=== PATIENT | male | born 1970 | race Caucasian/White ===

== ENCOUNTER → 2016-07-03 | Outpatient (CLI) | payer OTHER ==
--- NOTE | 2016-07-03 15:16 | XR ---
EXAMINATION TYPE: XR wrist complete LT DATE OF EXAM: 07/03/2016 3:12 PM COMPARISON: NONE HISTORY: Pain TECHNIQUE: 4 views submitted. FINDINGS: The osseous structures are intact. The joint spaces are preserved and there is no acute fracture or dislocation. Tiny bone island involving the distal radius. IMPRESSION: 1. No definite acute fracture or dislocation if symptoms persist, follow-up study in 7 to 10 days wo uld be suggested
== END | disposition home or self-care (01) ==
LOC: RADXRMAIN 15:01
PROVIDERS: ATTEND Psychiatry & Neurology Neurology
DX: M25.532 Pain in left wrist (principal)

== ENCOUNTER → 2016-07-16 | Outpatient (CLI) | payer OTHER ==
--- NOTE | 2016-07-16 15:02 | MR ---
EXAMINATION TYPE: MR lumbar spine wo con DATE OF EXAM: 07/16/2016 8:26 AM COMPARISON: NONE HISTORY: Lumbago CONTRAST: 0 mL intravenous Omniscan. TECHNIQUE: Multiplanar, multisequence images of the lumbar spine were acquired. FINDINGS: Cord terminates at the T12-L1 level. L5-S1: No significant disc bulge or disc herniation. No spinal canal stenosis. No foraminal stenosi s. Disc desiccation is present. L4-L5: Central disc protrusion is present with moderate anterior thecal sac compression. No AP spinal canal stenosis is present. On T2 sagittal weighted images there is increased signal within the infe rior disc space suggesting an annular tear. Neural foramen are patent.. Mild disc desiccation is pres ent. L3-L4: Mild symmetrical disc bulging is anterior thecal sac flattening. No AP spinal canal stenosis i s present. Neural foramen are patent. L2-L3: No significant disc bulge or disc herniation. No spinal canal stenosis. No foraminal stenosi s. Neural foramen are patent.. L1-L2: No significant disc bulge or disc herniation. No spinal canal stenosis. No foraminal stenosi s. . T12-L1: No significant disc bulge or disc herniation. No spinal canal stenosis. No foraminal stenos is. . IMPRESSION: 1. Central disc protrusion with moderate anterior thecal sac compression. No stenosis is present at t he L4-5 level. Annular tear may be present. 2. Minimal disc bulge with anterior thecal sac flattening L3-L4.
== END ==
LOC: RADMRIMAIN 07:48
PROVIDERS: ATTEND Psychiatry & Neurology Neurology
DX: M51.26 Other intervertebral disc displacement, lumbar region (principal); M51.27 Other intervertebral disc displacement, lumbosacral region; G95.29 Other cord compression
CPT/HCPCS: 72148

== ENCOUNTER → 2017-12-17 | Outpatient (CLI) | payer OTHER ==
--- NOTE | 2017-12-19 09:10 | MR ---
EXAMINATION TYPE: MR cspine/tspine wo con DATE OF EXAM: 12/17/2017 COMPARISON: None HISTORY: Neck pain, thoracic pain CONTRAST: Performed utilizing 0 mL intravenous Gadavist gadolinium contrast. TECHNIQUE: Multiplanar multiecho imaging on a 3.0 Adelina magnet is performed through the cervical spin e. Motion artifact causes some limitation of evaluation. FINDINGS: The craniovertebral junction is normal. Vertebral body alignment is normal. Spinal cord maintains normal signal through its visualized course. C7-T1: No focal disc herniation or significant disc bulge is evident. No spinal canal stenosis or n eural foraminal stenosis is present. C6-7: There is a small left paracentral disc herniation. This is likely subligamentous causing mild a nterior thecal sac compression. No spinal canal stenosis is present. Motion artifact limits evaluatio n for cord compression. Obvious cord contact is not identified. The sagittal plane no stenosis is arias dent. C5-6: Mild disc bulge has anterior thecal sac contact. No cord contact is evident. Uncovertebral join t hypertrophy is present with mild foraminal narrowing. C4-5: Mild disc bulge is anterior thecal sac flattening. No AP spinal canal stenosis present. No cord contact is evident. Uncovertebral joint hypertrophy is mild bilateral foraminal narrowing.. C3-4: There is a left paracentral mild disc bulge with mild anterior thecal sac compression. No focal disc herniation is evident. No cord contact is evident. Neural foramen are patent.. C2-3: No focal disc herniation or significant disc bulge is evident. No spinal canal stenosis or giovanny ral foraminal stenosis is present. IMPRESSIONS: 1. Small left paracentral subligamentous disc herniation C6-7 with mild anterior thecal sac compressi on. Motion artifact limits this level evaluation. 2. Additional mild disc bulging present C3-4 through C5-6. 3. Mild foraminal narrowing discussed above secondary to uncovertebral joint hypertrophy. EXAMINATION TYPE: MR cspine/tspine wo con DATE OF EXAM: 12/17/2017 COMPARISON: None HISTORY: Neck pain, thoracic pain CONTRAST: Performed utilizing 0 mL intravenous Gadavist gadolinium contrast. TECHNIQUE: Multiplanar, multiecho imaging on a 3.0 Adelina magnet is performed through the thoracic spi ne. Spinal cord maintains normal signal through its visualized course. Vertebral body alignment is normal. Vertebral body heights are preserved. Some minimal disc bulge at T8-9 may be present with anterior thecal sac flattening. No cord compressi on is evident. No spinal canal stenosis is present. T5-T6 had mild right paracentral disc bulge with anterior thecal sac contact. Some cord flattening ma y be present. Spinal canal stenosis is not present. Cord contact is not identified on this image. Disc hydration levels are preserved. No spinal canal stenosis is evident. IMPRESSIONS: 1. Mild disc bulging present T8-9 and T5-6 with anterior thecal sac contact.
== END | disposition home or self-care (01) ==
LOC: RADMRIMAIN 11:38
PROVIDERS: ATTEND Physician Assistant
DX: M50.223 Other cervical disc displacement at C6-C7 level (principal); M99.71 Connective tissue and disc stenosis of intervertebral foramina of cervical region; M51.24 Other intervertebral disc displacement, thoracic region
CPT/HCPCS: 72141; 72146

== ENCOUNTER 2018-05-22 16:35 | Inpatient (IN) | payer OTHER ==
[2018-05-22] MEDS ORDERED: ACETAMINOPHEN IV (For NPO) 1,000 MG in EMPTY BAG 1 BAG IVPB STA (17:05)
[2018-05-22] MEDS ORDERED: ONDANSETRON 4 MG/2 ML VIAL IVP STA (17:08)
[2018-05-22] MEDS ORDERED: PANTOPRAZOLE 40 MG/10 ML VIAL IVP ONE (17:09)
--- NOTE | 2018-05-22 17:20 | ED ---
General Adult HPI - General Chief complaint: GI Bleed Stated complaint: vomiting blood/diabetic Time Seen by Provider: 05/22/18 16:40 Source: patient, RN notes reviewed Mode of arrival: ambulatory Limitations: no limitations - History of Present Illness Initial comments: Is a 48-year-old male who presents emergency Department stating he's been vomiting since 10:00 this morning. Patient states he started vomiting and it is more recently turned into dark coffee ground emesis which which she states she's had in the past. Patient states he did have some drinks last night but is not an alcoholic. Patient states in the past they were never able to find out why he was vomiting up blood. Patient states he has a lot of nausea and slight diffuse abdominal pain. Patient denies any chest pain difficult breathing shortness of breath. Patient denies being on any blood thinners. Patient denies any history of any cirrhosis. - Related Data Home Medications Medication Instructions Recorded Confirmed Famotidine [Pepcid] 20 mg PO BID 09/11/14 05/22/18 Lisinopril 40 mg PO QAM 09/11/14 05/22/18 Losartan Potassium [Cozaar] 100 mg PO QAM 09/11/14 05/22/18 Sucralfate [Carafate] 1 gm PO QID 09/11/14 05/22/18 Terazosin [Hytrin] 2 mg PO HS 09/11/14 05/22/18 amLODIPine BESYLATE [Norvasc] 5 mg PO QAM 09/11/14 05/22/18 Gabapentin [Neurontin] 400 mg PO TID 05/22/18 05/22/18 Insulin Glargine,Hum.rec.anlog 26 unit SQ HS 05/22/18 05/22/18 [Basaglar Kwikpen U-100] Insulin Glargine,Hum.rec.anlog 30 unit SQ DAILY 05/22/18 05/22/18 [Basaglar Kwikpen U-100] Omeprazole 20 mg PO DAILY 05/22/18 05/22/18 Allergies Allergy/AdvReac Type Severity Reaction Status Date / Time No Known Allergies Allergy Verified 05/22/18 18:00 Review of Systems ROS Statement: Those systems with pertinent positive or pertinent negative responses have been documented in the HPI. ROS Other: All systems not noted in ROS Statement are negative. Past Medical History Past Medical History: Diabetes Mellitus, GERD/Reflux, Hypertension Additional Past Medical History / Comment(s): PT STATES HE FREQUENTLY VOMITS BLOOD, History of Any Multi-Drug Resistant Organisms: None Reported Additional Past Surgical History / Comment(s): colonoscopy Past Anesthesia/Blood Transfusion Reactions: No Reported Reaction Past Psychological History: Anxiety, Depression Smoking Status: Former smoker Past Alcohol Use History: Occasional Past Drug Use History: Marijuana - Past Family History Mother Family Medical History: No Reported History General Exam - General Exam Comments Initial Comments: GENERAL: Patient is well-developed and well-nourished. Patient is nontoxic and well- hydrated and is in mild distress. ENT: Neck is soft and supple. No significant lymphadenopathy is noted. Oropharynx is clear. Moist mucous membranes. EYES: The sclera were anicteric and conjunctiva were pink and moist. Extraocular movements were intact and pupils were equal round and reactive to light. Eyelids were unremarkable. PULMONARY: Unlabored respirations. Good breath sounds bilaterally. No audible rales rhonchi or wheezing was noted. CARDIOVASCULAR: There is a regular rate and rhythm without any murmurs gallops or rubs. ABDOMEN: Soft and nontender with normal bowel sounds. No palpable organomegaly was noted. There is no palpable pulsatile mass. SKIN: Skin is clear with no lesions or rashes and otherwise unremarkable. NEUROLOGIC: Patient is alert and oriented x3. Cranial nerves II through XII are grossly intact. Motor and sensory are also intact. Normal speech, volume and content. Symmetrical smile. MUSCULOSKELETAL: Normal extremities with adequate strength and full range of motion. LYMPHATICS: No significant lymphadenopathy is noted PSYCHIATRIC: Normal psychiatric evaluation. Limitations: no limitations Course Vital Signs 05/22/18 05/22/18 05/22/18 16:38 17:01 18:12 Temperature 98.3 F 100.1 F H Pulse Rate 80 57 L Respiratory 20 16 Rate Blood Pressure 197/92 183/87 O2 Sat by Pulse 100 99 Oximetry 05/22/18 05/22/18 18:53 19:24 Temperature 99.5 F Pulse Rate Respiratory 17 Rate Blood Pressure 162/108 O2 Sat by Pulse Oximetry Medical Decision Making - Medical Decision Making Patient's gastric occult was positive. Patient's hemoglobin was 13. - Lab Data Result diagrams: 05/22/18 17:11 05/22/18 17:11 Lab Results 05/22/18 05/22/18 05/22/18 Range/Units 17:11 17:11 17:11 WBC 11.4 H (3.8-10.6) k/uL RBC 4.52 (4.30-5.90) m/uL Hgb 13.2 (13.0-17.5) gm/dL Hct 39.1 (39.0-53.0) % MCV 86.5 (80.0-100.0) fL MCH 29.2 (25.0-35.0) pg MCHC 33.7 (31.0-37.0) g/dL RDW 13.3 (11.5-15.5) % Plt Count 277 (150-450) k/uL Neutrophils % 88 % Lymphocytes % 8 % Monocytes % 3 % Eosinophils % 1 % Basophils % 0 % Neutrophils # 10.1 H (1.3-7.7) k/uL Lymphocytes # 0.9 L (1.0-4.8) k/uL Monocytes # 0.3 (0-1.0) k/uL Eosinophils # 0.1 (0-0.7) k/uL Basophils # 0.0 (0-0.2) k/uL PT (9.0-12.0) sec INR (<1.2) APTT (22.0-30.0) sec Sodium 144 (137-145) mmol/L Potassium 4.1 (3.5-5.1) mmol/L Chloride 108 H (98-107) mmol/L Carbon Dioxide 22 (22-30) mmol/L Anion Gap 14 mmol/L BUN 22 H (9-20) mg/dL Creatinine 0.85 (0.66-1.25) mg/dL Est GFR (CKD-EPI)AfAm >90 (>60 ml/min/1.73 sqM) Est GFR (CKD-EPI)NonAf >90 (>60 ml/min/1.73 sqM) Glucose 190 H (74-99) mg/dL Plasma Lactic Acid Christopher 1.8 (0.7-2.0) mmol/L Calcium 10.5 H (8.4-10.2) mg/dL Total Bilirubin 0.8 (0.2-1.3) mg/dL AST 35 (17-59) U/L ALT 37 (21-72) U/L Alkaline Phosphatase 64 (38-126) U/L Total Protein 7.6 (6.3-8.2) g/dL Albumin 4.8 (3.5-5.0) g/dL Gastric Occult Blood (Negative) Blood Type Blood Type Recheck Antibody Screen Spec Expiration Date 05/22/18 05/22/18 05/22/18 Range/Units 17:11 17:11 18:05 WBC (3.8-10.6) k/uL RBC (4.30-5.90) m/uL Hgb (13.0-17.5) gm/dL Hct (39.0-53.0) % MCV (80.0-100.0) fL MCH (25.0-35.0) pg MCHC (31.0-37.0) g/dL RDW (11.5-15.5) % Plt Count (150-450) k/uL Neutrophils % % Lymphocytes % % Monocytes % % Eosinophils % % Basophils % % Neutrophils # (1.3-7.7) k/uL Lymphocytes # (1.0-4.8) k/uL Monocytes # (0-1.0) k/uL Eosinophils # (0-0.7) k/uL Basophils # (0-0.2) k/uL PT 10.7 (9.0-12.0) sec INR 1.0 (<1.2) APTT 20.4 L (22.0-30.0) sec Sodium (137-145) mmol/L Potassium (3.5-5.1) mmol/L Chloride (98-107) mmol/L Carbon Dioxide (22-30) mmol/L Anion Gap mmol/L BUN (9-20) mg/dL Creatinine (0.66-1.25) mg/dL Est GFR (CKD-EPI)AfAm (>60 ml/min/1.73 sqM) Est GFR (CKD-EPI)NonAf (>60 ml/min/1.73 sqM) Glucose (74-99) mg/dL Plasma Lactic Acid Christopher (0.7-2.0) mmol/L Calcium (8.4-10.2) mg/dL Total Bilirubin (0.2-1.3) mg/dL AST (17-59) U/L ALT (21-72) U/L Alkaline Phosphatase (38-126) U/L Total Protein (6.3-8.2) g/dL Albumin (3.5-5.0) g/dL Gastric Occult Blood Positive (Negative) Blood Type A Positive Blood Type Recheck No Antibody Screen NEGATIVE Spec Expiration Date 05/25/2018 - 231 Disposition Clinical Impression: Acute vomiting, Upper GI bleed Disposition: ADMITTED IP TO THIS HOSP Referrals: Lila Heath MD [Primary Care Provider] - 1-2 days Time of Disposition: 19:33
[2018-05-22 17:34] LABS: Basophils % (A) 0 %; Eosinophils # (A) 0.1 k/uL (0-0.7); Eosinophils % (A) 1 %; HCT 39.1 % (39.0-53.0); HGB 13.2 gm/dL (13.0-17.5); Lymphocytes # (A) 0.9 k/uL (1.0-4.8); Lymphocytes % (A) 8 %; MCH 29.2 pg (25.0-35.0); MCHC 33.7 g/dL (31.0-37.0); MCV 86.5 fL (80.0-100.0); Mean Platelet Volume 6.8; Monocytes # (A) 0.3 k/uL (0-1.0); Monocytes % (A) 3 %; Neutrophils # (A) 10.1 k/uL (1.3-7.7); Neutrophils % (A) 88 %; Platelet Count 277 k/uL (150-450); RBC 4.52 m/uL (4.30-5.90); RDW 13.3 % (11.5-15.5); WBC 11.4 k/uL (3.8-10.6)
[2018-05-22] MEDS: SODIUM CHLORIDE 0.9% 500 ML 500 ML IV SCH ×2 (17:35→18:09)
[2018-05-22 17:44] LABS: ALT 37 U/L (21-72); AST 35 U/L (17-59); Albumin 4.8 g/dL (3.5-5.0); Alkaline Phosphatase 64 U/L (38-126); Anion Gap 14 mmol/L; Blood Urea Nitrogen 22 mg/dL (9-20); Calcium 10.5 mg/dL (8.4-10.2); Carbon Dioxide 22 mmol/L (22-30); Chloride 108 mmol/L (98-107); Glucose 190 mg/dL (74-99); Potassium 4.1 mmol/L (3.5-5.1); Sodium 144 mmol/L (137-145); Total Bilirubin 0.8 mg/dL (0.2-1.3); Total Protein 7.6 g/dL (6.3-8.2)
[2018-05-22 17:50] LABS: Prothrombin Time 10.7 sec (9.0-12.0)
[2018-05-22 17:57] LABS: Partial Thromboplastin Time 20.4 sec (22.0-30.0)
--- NOTE | 2018-05-22 18:00 | XR ---
EXAMINATION TYPE: XR chest 2V DATE OF EXAM: 05/22/2018 COMPARISON: June 25, 2013 HISTORY: Vomiting blood TECHNIQUE: Frontal and lateral views of the chest are obtained. FINDINGS: Heart and mediastinum are normal. Lungs are clear. Diaphragm is normal. Bony thorax is int act. Pulmonary vascularity is normal. IMPRESSION: Normal chest. No change.
[2018-05-22] MEDS ORDERED: SODIUM CHLORIDE 0.9% 1,000 ML IV ONE (19:35)
[2018-05-22 19:50] LABS: Appearance,Urine Clear (Clear); Bilirubin,Urine Negative (Negative); Blood,Urine Small (Negative); Color,Urine Light Yellow; Glucose,Urine (UA) 4+ (Negative); Leukocyte Esterase,Urine Negative (Negative); Mucus,Urine Rare /hpf; Nitrite,Urine Negative (Negative); PH, Urine 7.5 (5.0-8.0); Protein,Urine 2+ (Negative); RBC,Urine 19 /hpf (0-5); Specific Gravity,Urine 1.013 (1.001-1.035); Urobilinogen,Urine <2.0 mg/dL (<2.0); WBC,Urine <1 /hpf (0-5)
[2018-05-22 19:52] LABS: Ketones,Urine 3+ (Negative)
[2018-05-22] MEDS ORDERED: HYDROmorphone 1 MG/ML 1 ML SYRINGE IVP STA (19:55)
[2018-05-22 23:04] LABS: Glucose,Whole Blood 191 mg/dL (75-99)
[2018-05-23] MEDS ORDERED: ALPRAZolam 0.25 MG TAB PO PRN (00:02)
[2018-05-23] MEDS ORDERED: TEMAZEPAM 15 MG CAP PO PRN (00:02)
[2018-05-23] MEDS ORDERED: HYDROcodone/APAP 5-325MG 1 EACH TAB PO PRN (00:02)
[2018-05-23] MEDS ORDERED: ACETAMINOPHEN TAB 500 MG TAB PO PRN (00:02)
[2018-05-23] MEDS: HYDROmorphone 0.5 MG/0.5 ML SYRINGE IVP PRN ×4 (03:30→22:09)
[2018-05-23] MEDS: ONDANSETRON 4 MG/2 ML VIAL IVP PRN ×3 (07:17→22:07)
[2018-05-23 07:36] LABS: Glucose,Whole Blood 231 mg/dL (75-99)
[2018-05-23] MEDS: amLODIPine 5 MG TAB PO SCH (09:21)
[2018-05-23] MEDS: SUCRALFATE 1 GM TAB PO SCH ×4 (09:22→21:17)
[2018-05-23] MEDS: GABAPENTIN 400 MG CAP PO SCH ×3 (09:22→21:17)
[2018-05-23] MEDS: LISINOPRIL 20 MG TAB PO SCH (09:22)
[2018-05-23] MEDS: PANTOPRAZOLE 40 MG/10 ML VIAL IVP SCH ×2 (09:22→21:17)
[2018-05-23] MEDS: LOSARTAN 50 MG TAB PO SCH (09:22)
[2018-05-23] MEDS: INSULIN ASPART 100 UNIT/ML 1 ML 10 ML VIAL SQ SCH ×5 (09:24→21:22)
[2018-05-23 09:25] LABS: Glucose,Whole Blood 269 mg/dL (75-99)
[2018-05-23] MEDS ORDERED: TRIMETHOBENZAMIDE 300 MG CAP PO PRN (09:46)
--- NOTE | 2018-05-23 10:05 | HP ---
HISTORY AND PHYSICAL DATE OF SERVICE: 05/22/2018 CHIEF COMPLAINTS: Vomiting and coffee-ground emesis, upper gastrointestinal bleed. HISTORY OF PRESENT ILLNESS: This 48-year-old gentleman with a past medical history of diabetes, GERD, hypertension being followed by Dr. Heath in the outpatient setting had recurrent episodes of vomiting. The patient had vomiting since 10 o'clock this morning. Subsequently patient turned into dark coffee ground emesis. The patient came to [facility] and was admitted for further evaluation and treatment. There is no history of fever, rigors or chills. No history of headache, loss of consciousness, chest pain or palpations. PAST MEDICAL HISTORY: Diabetes, GERD, hypertension, history of anxiety, depression. MEDICATIONS: Prior to admission home medications are: 1. Neurontin 400 mg p.o. t.i.d. 2. Insulin 26 units subcu q.h.s. and 30 units subcu daily. 3. Omeprazole 20 mg daily. 4. Norvasc 5 mg q.h.s. 5. Hytrin 2 mg q.h.s. 6. Carafate 1 gm q.i.d. 7. Cozaar 100 mg daily. 8. Lisinopril 40 mg q.h.s. 9. Pepcid 20 mg b.i.d. ALLERGIES: None. FAMILY HISTORY: No history of heart disease or strokes in the family. SOCIAL HISTORY: History of THC on a regular basis. History of alcohol on a regular basis only 1 drink per day according to the patient. Previous history of smoking. REVIEW OF SYSTEMS: ENT: No diminished hearing or vision. CARDIOVASCULAR SYSTEM: No angina or palpitations. RESPIRATORY: No cough or hemoptysis. GI no nausea or vomiting. no dysuria. NERVOUS SYSTEM: No numbness, weakness. ALLERGY/IMMUNOLOGY: No asthma or hayfever. MUSCULOSKELETAL as mentioned EARLIER. HEMATOLOGY/ONCOLOGY: No history of anemia. ENDOCRINE: History of diabetes. No hypothyroidism. CONSTITUTIONAL: As mentioned earlier. Dermatology: Negative. Rheumatology: Negative. Psychiatry: As mentioned earlier. PHYSICAL EXAM: GENERAL: Patient is alert, oriented x3. The pulse is 57, blood pressure 138/77, respirations 16, temperature 99.4, pulse ox 99% on room air. HEENT: Conjunctivae normal. NECK: No jugular venous distention. CARDIOVASCULAR: S1, S2. RESPIRATORY: Breath sounds diminished in the bases. No rhonchi. No crackles. ABDOMEN: Soft, nontender. No mass palpable. LEGS: No edema. No swelling. NERVOUS SYSTEM: Higher functions as mentioned. Moves all four extremities. No focal deficits. LYMPHATICS: No lymph nodes palpable in the neck, axillae or groin. SKIN: No ulcer, rash or bleeding. LABS: WBC 11.2, hemoglobin 13.2. Other labs are noted. ASSESSMENT: 1. Incessant vomiting and upper gastrointestinal bleeding, possible acute gastritis, rule out Sheila-Miramontes syndrome. 2. Increased WBC. 3. History of EtOH. 4. Diabetes mellitus type 2. 5. Hypertension. 6. History of gastroesophageal reflux disease. 7. Anxiety, depression. 8. Remote history of nicotine dependence. 9. History of THC. RECOMMENDATIONS AND DISCUSSION: In this 48-year-old gentleman who presented with multiple complex medical issues. We will monitor the patient closely. Continue the current medications, management and symptomatic treatment. IV Protonix. Gastroenterology evaluation. Possible upper endoscopy. Guarded prognosis because of multiple complex medical issues and further recommendations to follow. A copy of dictation being forwarded to Dr. Heath who is the primary care physician. MMODL / IJN: [id number] / MTDOlaf
[2018-05-23 11:43] LABS: Hemoglobin A1C 8.7 % (4.0-6.0)
[2018-05-23 11:58] LABS: Glucose,Whole Blood 218 mg/dL (75-99)
[2018-05-23] MEDS: TRIMETHOBENZAMIDE 100 MG/ML 2 ML VIAL IM PRN ×2 (12:05→16:54)
[2018-05-23 17:07] LABS: Glucose,Whole Blood 285 mg/dL (75-99)
[2018-05-23 18:14] LABS: Basophils % (A) 0 %; Eosinophils % (A) 0 %; HCT 39.5 % (39.0-53.0); HGB 12.8 gm/dL (13.0-17.5); Lymphocytes # (A) 1.4 k/uL (1.0-4.8); Lymphocytes % (A) 12 %; MCH 29.2 pg (25.0-35.0); MCHC 32.5 g/dL (31.0-37.0); MCV 89.7 fL (80.0-100.0); Mean Platelet Volume 7.3; Monocytes # (A) 0.7 k/uL (0-1.0); Monocytes % (A) 5 %; Neutrophils % (A) 82 %; Platelet Count 260 k/uL (150-450); RBC 4.41 m/uL (4.30-5.90); RDW 13.8 % (11.5-15.5); WBC 12.2 k/uL (3.8-10.6)
--- NOTE | 2018-05-23 18:25 | PN ---
PROGRESS NOTE DATE OF SERVICE: 05/23/2018 This 48-year-old gentleman was admitted with incessant vomiting and upper gastrointestinal bleeding, possibly Sheila-Miramontes syndrome. Gastroenterology following the patient closely. Possible EGD . No chest pain. No palpitations. No fever. EXAM: Alert and oriented x3. Pulse 77, blood pressure is 106/80, respiration 18, temperature 99.2, pulse ox 97% on room air. HEENT: Conjunctivae normal. Oral mucosa moist. NECK: No jugular venous distention. No lymph node enlargement. CARDIOVASCULAR: S1, S2. RESPIRATORY: Diminished breath sounds muffled at the bases. Bilateral scattered rhonchi. ABDOMEN: Soft, nontender. LEGS: No swelling. NERVOUS SYSTEM: No focal deficits. LABS: Glucose 285. Otherwise hemoglobin was 13.2. Today's labs are not available. ASSESSMENT: 1. Incessant vomiting and upper gastrointestinal bleeding, possible acute gastritis, possibly Sheila-Miramontes syndrome. 2. Increased WBC. 3. History of ETOH. 4. Diabetes mellitus type 2. 5. Hypertension. 6. History gastroesophageal reflux disease. 7. History of anxiety and depression. 8. Remote history of nicotine dependence. 9. History of THC. RECOMMENDATIONS: Recommend to continue current management and continue symptomatic treatment. Continue the proton pump inhibitors, gastroenterology evaluation. Dr. Vela will evaluate the patient and proceed further. Further recommendations to follow. MMODL / IJN: [id number] / MTDD
[2018-05-23 21:19] LABS: Glucose,Whole Blood 207 mg/dL (75-99)
[2018-05-23] MEDS: DOXAZOSIN 2 MG TAB PO SCH (21:27)
--- NOTE | 2018-05-24 01:09 | P.CONS ---
History of Present Illness - Reason for Consult Consult date: 05/23/18 Coffee-ground emesis Requesting physician: Jeni Willis - Chief Complaint Nausea, vomiting, coffee-ground emesis - History of Present Illness The patient is a 48-year-old male with a medical history significant for insulin -dependent diabetes mellitus, depression and hypertension presents to the hospital with complaints of nausea, vomiting and coffee-ground emesis. The patient reports that he previously had a history significant for multiple episodes of nausea and vomiting with blood and coffee-ground emesis. He reports that this is been evaluated in the past extensively with EGD and colonoscopy approximately 10 years ago. However patient reports that over the past 3 years his symptoms have improved greatly. He attributes this to decreasing alcohol intake. He reports that he has been drinking over the past few weeks and believes that this may have triggered his recent episode of nausea and vomiting. He reports that initially he had 2 episodes of vomiting that were nonbloody and nonbilious. Subsequently he noticed multiple episodes of dark black vomitus and presented to the hospital for further evaluation. His last bowel movement was yesterday and normal in color. He denies any NSAID use. On presentation hemoglobin was found to be 13.2. Gastric fluid was sent and found to be positive for blood. Review of Systems REVIEW OF SYSTEMS: CARDIO: Denies any chest pain or palpitations. PULMONARY: Denies any shortness of breath or wheezing. GENITOURINARY: No dysuria or hematuria. MUSCULOSKELETAL: No weakness reported. SKIN: Denies any new rashes or lesions, jaundice or pallor. PSYCHIATRIC: Denies any depression or anxiety. NEUROLOGY: Denies headache, denies any new focal deficits. EARS: No tinnitus, discharge or new hearing loss. NOSE: No discharge or congestion. EYES: No pain in eyes or change in vision. CONSTITUTIONAL: No recent weight loss. No fever, chills, night sweats. Past Medical History Past Medical History: Diabetes Mellitus, GERD/Reflux, Hypertension Additional Past Medical History / Comment(s): PT STATES HE FREQUENTLY VOMITS BLOOD, History of Any Multi-Drug Resistant Organisms: None Reported Additional Past Surgical History / Comment(s): colonoscopy Past Anesthesia/Blood Transfusion Reactions: No Reported Reaction Past Psychological History: Anxiety, Depression Smoking Status: Former smoker Past Alcohol Use History: Occasional Additional Past Alcohol Use History / Comment(s): quit smoking 2004,smoked approx 20 yrs Past Drug Use History: Marijuana Additional Drug Use History / Comment(s): marijuana a few times a day, 05/21/18 last drink 05/21/18 states one liquior drink a day. recently started drinking again. Additional History: Family history: Reviewed with the patient and noncontributory to current medical presentation - Past Family History Mother Family Medical History: No Reported History Medications and Allergies Home Medications Medication Instructions Recorded Confirmed Type Famotidine [Pepcid] 20 mg PO BID 09/11/14 05/22/18 History Lisinopril 40 mg PO QAM 09/11/14 05/22/18 History Losartan Potassium [Cozaar] 100 mg PO QAM 09/11/14 05/22/18 History Sucralfate [Carafate] 1 gm PO QID 09/11/14 05/22/18 History Terazosin [Hytrin] 2 mg PO HS 09/11/14 05/22/18 History amLODIPine BESYLATE [Norvasc] 5 mg PO QAM 09/11/14 05/22/18 History Gabapentin [Neurontin] 400 mg PO TID 05/22/18 05/22/18 History Insulin Glargine,Hum.rec.anlog 26 unit SQ HS 05/22/18 05/22/18 History [Basaglar Kwikpen U-100] Insulin Glargine,Hum.rec.anlog 30 unit SQ DAILY 05/22/18 05/22/18 History [Basaglar Kwikpen U-100] Omeprazole 20 mg PO DAILY 05/22/18 05/22/18 History Allergies Allergy/AdvReac Type Severity Reaction Status Date / Time No Known Allergies Allergy Verified 05/22/18 18:00 Physical Exam Vitals: Vital Signs Temp Pulse Resp BP Pulse Ox 05/23/18 15:00 99.2 F 77 18 164/82 97 05/23/18 07:00 98.5 F 88 16 160/77 98 Intake and Output 05/23/18 05/23/18 05/24/18 14:59 22:59 06:59 Output Total 250 Balance -250 Output: Urine 250 Other: Voiding Method Urinal # Voids 3 On physical examination, patient appears comfortable in no apparent distress. HEAD: Normocephalic, atraumatic. EYES: No scleral icterus. No conjunctival injection. MOUTH: No lesions, tongue midline. NECK: Trachea midline, no gross abnormalities. CHEST: Clear to auscultation with no wheezing or rhonchi appreciated. HEART: Regular rate and rhythm. ABDOMEN: Soft, obese. Bowel sounds are positive. No organomegaly. No guarding or rigidity. EXTREMITIES: No pedal edema. SKIN: No rashes, no jaundice. NEUROLOGIC: Alert and oriented x3. No focal deficits. Results CBC & Chem 7: 05/23/18 11:11 05/22/18 17:11 Labs: Abnormal Lab Results - Last 24 Hours (Table) 05/22/18 05/23/18 05/23/18 Range/Units 17:11 06:58 09:23 WBC (3.8-10.6) k/uL Hgb (13.0-17.5) gm/dL Neutrophils # (1.3-7.7) k/uL POC Glucose (mg/dL) 231 H 269 H (75-99) mg/dL Hemoglobin A1c 8.7 H (4.0-6.0) % 05/23/18 05/23/18 05/23/18 Range/Units 11:11 11:36 17:06 WBC 12.2 H (3.8-10.6) k/uL Hgb 12.8 L (13.0-17.5) gm/dL Neutrophils # 10.0 H (1.3-7.7) k/uL POC Glucose (mg/dL) 218 H 285 H (75-99) mg/dL Hemoglobin A1c (4.0-6.0) % 05/23/18 Range/Units 21:15 WBC (3.8-10.6) k/uL Hgb (13.0-17.5) gm/dL Neutrophils # (1.3-7.7) k/uL POC Glucose (mg/dL) 207 H (75-99) mg/dL Hemoglobin A1c (4.0-6.0) % Microbiology - Last 24 Hours (Table) 05/22/18 19:20 Urine Culture - Final Urine,Voided 05/22/18 17:11 Blood Culture - Preliminary Blood No Growth after 24 hours Assessment and Plan (1) Upper GI bleed Narrative/Plan: Patient presenting with multiple episodes of nausea and vomiting and reports of coffee-ground emesis. He reports that the dark vomit was noticed after initial episodes of vomiting with normal emesis. Likely represents a Sheila-Miramontes tear , differential also includes esophagitis/gastritis, peptic ulcer disease or other etiology. Current Visit: Yes Status: Acute Code(s): K92.2 - GASTROINTESTINAL HEMORRHAGE, UNSPECIFIED SNOMED Code(s): 71710224 (2) Acute vomiting Narrative/Plan: Patient with a greater than 20 year history of diabetes and associated neuropathy. May have underlying diabetic gastroparesis. Current Visit: Yes Status: Acute Code(s): R11.10 - VOMITING, UNSPECIFIED SNOMED Code(s): 93595002 Plan: Supportive care Nothing by mouth after midnight Continue Protonix therapy Continue to monitor hemoglobin and transfuse as needed Plan for EGD Diabetic teaching with dietitian seen patient in the hospital, in addition extensive discussion about low fat, low residue diet in the setting of gastroparesis Thank you for allowing us to participate in the care of this patient we will continue to follow
[2018-05-24] MEDS: TRIMETHOBENZAMIDE 100 MG/ML 2 ML VIAL IM PRN ×2 (02:19→07:25)
[2018-05-24] MEDS: ONDANSETRON 4 MG/2 ML VIAL IVP PRN ×4 (03:53→22:13)
[2018-05-24] MEDS: HYDROmorphone 0.5 MG/0.5 ML SYRINGE IVP PRN ×4 (03:55→22:14)
[2018-05-24 07:53] LABS: Glucose,Whole Blood 313 mg/dL (75-99)
[2018-05-24] MEDS: INSULIN ASPART 100 UNIT/ML 1 ML 10 ML VIAL SQ SCH ×4 (08:01→21:28)
[2018-05-24] MEDS: PANTOPRAZOLE 40 MG/10 ML VIAL IVP SCH ×2 (08:05→21:27)
[2018-05-24] MEDS: LORazepam 2 MG/ML INJ IV PRN ×2 (08:37→15:12)
[2018-05-24] MEDS: GABAPENTIN 400 MG CAP PO SCH ×4 (09:34→22:13)
[2018-05-24 09:53] LABS: Basophils % (A) 0 %; Eosinophils # (A) 0.1 k/uL (0-0.7); Eosinophils % (A) 0 %; HGB 12.8 gm/dL (13.0-17.5); Lymphocytes # (A) 0.6 k/uL (1.0-4.8); Lymphocytes % (A) 5 %; MCH 29.7 pg (25.0-35.0); MCHC 32.9 g/dL (31.0-37.0); MCV 90.3 fL (80.0-100.0); Mean Platelet Volume 6.9; Monocytes # (A) 0.5 k/uL (0-1.0); Monocytes % (A) 4 %; Neutrophils # (A) 11.9 k/uL (1.3-7.7); Neutrophils % (A) 91 %; Platelet Count 252 k/uL (150-450); RBC 4.31 m/uL (4.30-5.90); RDW 13.5 % (11.5-15.5); WBC 13.1 k/uL (3.8-10.6)
[2018-05-24 10:12] LABS: Anion Gap 18 mmol/L; Blood Urea Nitrogen 27 mg/dL (9-20); Calcium 9.5 mg/dL (8.4-10.2); Carbon Dioxide 19 mmol/L (22-30); Chloride 108 mmol/L (98-107); Glucose 321 mg/dL (74-99); Sodium 145 mmol/L (137-145)
[2018-05-24] MEDS: SUCRALFATE 1 GM TAB PO SCH ×4 (10:48→21:29)
[2018-05-24] MEDS: LISINOPRIL 20 MG TAB PO SCH ×2 (11:27→15:08)
[2018-05-24] MEDS: LOSARTAN 50 MG TAB PO SCH ×2 (11:27→15:08)
[2018-05-24] MEDS: amLODIPine 5 MG TAB PO SCH ×2 (11:28→15:08)
[2018-05-24 12:10] LABS: Glucose,Whole Blood 270 mg/dL (75-99)
[2018-05-24] MEDS ORDERED: PROPOFOL 10 MG/ML 20 ML VIAL IV ONE (14:11)
[2018-05-24] MEDS ORDERED: LIDOCAINE 1% INJ 10MG/ML (20 ML MDV) ONE (14:11)
[2018-05-24] MEDS ORDERED: IV FLUID CONTINUATION 200 ML IV ONE (14:11)
--- NOTE | 2018-05-24 15:32 | P.PCN ---
Date of Procedure: 05/24/18 Description of Procedure: BRIEF HISTORY: The patient is a 48-year-old male with a medical history significant for insulin -dependent diabetes mellitus, depression and hypertension presents to the hospital with complaints of nausea, vomiting and coffee-ground emesis. The patient reports that he previously had a history significant for multiple episodes of nausea and vomiting with blood and coffee-ground emesis. He reports that this is been evaluated in the past extensively with EGD and colonoscopy approximately 10 years ago. However patient reports that over the past 3 years his symptoms have improved greatly. He attributes this to decreasing alcohol intake. He reports that he has been drinking over the past few weeks and believes that this may have triggered his recent episode of nausea and vomiting. He reports that initially he had 2 episodes of vomiting that were nonbloody and nonbilious. Subsequently he noticed multiple episodes of dark black vomitus and presented to the hospital for further evaluation. His last bowel movement was yesterday and normal in color. He denies any NSAID use. On presentation hemoglobin was found to be 13.2. Gastric fluid was sent and found to be positive for blood. PROCEDURE PERFORMED: Esophagogastroduodenoscopy with biopsy. PREOPERATIVE DIAGNOSIS: Coffee-ground emesis, nausea and vomiting. ESTIMATED BLOOD LOSS: Minimal. IV sedation per anesthesia. PROCEDURE: After informed consent was obtained, the patient was brought into the endoscopy unit. IV sedation was administered by Anesthesia under continuous monitoring. Initially the Olympus GIF-190 video endoscope was inserted into the mouth. Esophagus intubated without any difficulty. It was gradually advanced into the stomach and duodenum and carefully examined. The bulb and the second part of the duodenum appeared normal. The scope at this time was withdrawn to the stomach, adequately insufflated with air, and upon careful examination, mucosa of the antrum, body, cardia and the fundus appeared grossly normal. Some mild scattered erythema in the antrum and body suggestive of gastritis was seen, with biopsies taken. The scope was then withdrawn into the esophagus. The GE junction was located at 45 cm from the incisors. The esophagus appeared normal. There were no erosions or ulcerations seen and the patient tolerated the procedure well. IMPRESSION: 1. No evidence of active bleeding, or pathology to explain symptoms. 2. Gastritis of the antrum and body, biopsied. RECOMMENDATIONS: The findings of this examination were discussed with the patient and his girlfriend. Okay to restart diet as tolerated. We'll change Protonix to 40 mg daily. Await pathology from biopsies. Extensive discussion on dietary modifications given known history of diabetes mellitus, and possibility of gastroparesis.
[2018-05-24 17:30] LABS: Glucose,Whole Blood 277 mg/dL (75-99)
--- NOTE | 2018-05-24 18:54 | P.PN ---
Subjective Progress Note Date: 05/24/18 Progress note being dictated for Dr. 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 Evaluated by GI, scheduled for EGD today. NPO. HGB 12.8. No further bleeding. Afebrile, denies chest pain, palpitations or increased shortness of breath. Systolic blood pressures currently in the 160s to 170s. Objective - Vital Signs Vital signs: Vital Signs Temp 98.7 F 05/24/18 15:02 Pulse 78 05/24/18 15:02 Resp 18 05/24/18 15:02 BP 186/86 05/24/18 16:58 Pulse Ox 98 05/24/18 15:02 Intake & Output 05/23/18 05/24/18 05/24/18 18:59 06:59 18:59 Intake Total 750 100 Output Total 250 1250 1 Balance -250 -500 99 Intake: IV 100 Intake, IV Titration 750 Amount Sodium Chloride 0.9% 1, 750 000 ml @ 75 mls/hr IV . [id number] ONE Rx#:[id number] Output: Urine 250 1250 Emesis 1 Other: Voiding Method Urinal Urinal # Voids 3 3 4 # Bowel Movements 0 0 - Exam PHYSICAL EXAM: VITAL SIGNS: [As above] GENERAL: Lying in bed, no acute distress HEENT: Conjunctivae normal. eyes normal. Oral mucosa dry NECK: No JVD. No thyroid enlargement. No LNs CARDIOVASCULAR: S1, S2 muffled. No murmur RESPIRATION: Breath sounds diminished in the bases. Scattered rhonchi. ABDOMEN: Soft, nontender . No guarding. no masses palpable. Bowel sounds heard. LEGS: No edema. no swelling PSYCHIATRY: Alert and oriented -3, mood and affect normal. NERVOUS SYSTEM: No focal deficits. - Labs CBC & Chem 7: 05/24/18 09:07 05/24/18 09:07 Labs: Abnormal Lab Results - Last 24 Hours (Table) 05/23/18 05/24/18 05/24/18 Range/Units 21:15 07:42 09:07 WBC 13.1 H (3.8-10.6) k/uL Hgb 12.8 L (13.0-17.5) gm/dL Neutrophils # 11.9 H (1.3-7.7) k/uL Lymphocytes # 0.6 L (1.0-4.8) k/uL Chloride (98-107) mmol/L Carbon Dioxide (22-30) mmol/L BUN (9-20) mg/dL Glucose (74-99) mg/dL POC Glucose (mg/dL) 207 H 313 H (75-99) mg/dL 05/24/18 05/24/18 05/24/18 Range/Units 09:07 11:48 17:28 WBC (3.8-10.6) k/uL Hgb (13.0-17.5) gm/dL Neutrophils # (1.3-7.7) k/uL Lymphocytes # (1.0-4.8) k/uL Chloride 108 H (98-107) mmol/L Carbon Dioxide 19 L (22-30) mmol/L BUN 27 H (9-20) mg/dL Glucose 321 H (74-99) mg/dL POC Glucose (mg/dL) 270 H 277 H (75-99) mg/dL Microbiology - Last 24 Hours (Table) 05/22/18 19:20 Urine Culture - Final Urine,Voided 05/22/18 17:11 Blood Culture - Preliminary Blood No Growth after 24 hours Assessment and Plan Assessment: -Incessant vomiting, upper GI bleeding, possible acute gastritis, 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 Maintain PPI. Close monitoring of hemoglobin. EGD pending. Resume oral antihypertensives after scope results as well as tonights lantus dose. Close monitoring of blood pressure. Follow closely with GI. Further recommendations to follow. The impression and plan of care has been dictated as directed. : I performed a history and examination of this patient, discussed the same with the dictator. I agree with the dictator's note ,documented as a scribe. Any additional findings or plans will be noted.
[2018-05-24 20:20] LABS: Glucose,Whole Blood 283 mg/dL (75-99)
[2018-05-24] MEDS: INSULIN DETEMIR 100 UNIT/ML 10 ML VIAL SQ SCH (21:27)
[2018-05-24] MEDS: DOXAZOSIN 2 MG TAB PO SCH (21:28)
[2018-05-25] MEDS ORDERED: HYDROmorphone 0.5 MG/0.5 ML SYRINGE ONE (04:00)
[2018-05-25] MEDS ORDERED: TRIMETHOBENZAMIDE 100 MG/ML 2 ML VIAL IM ONE (04:00)
[2018-05-25] MEDS ORDERED: ALPRAZolam 0.25 MG TAB ONE (04:00)
[2018-05-25] MEDS: ONDANSETRON 4 MG/2 ML VIAL IVP PRN ×3 (05:40→17:56)
[2018-05-25 06:37] LABS: Glucose,Whole Blood 198 mg/dL (75-99)
[2018-05-25] MEDS: LOSARTAN 50 MG TAB PO SCH (07:52)
[2018-05-25] MEDS: GABAPENTIN 400 MG CAP PO SCH ×4 (07:52→21:44)
[2018-05-25] MEDS: PANTOPRAZOLE 40 MG/10 ML VIAL IVP SCH ×2 (07:52→21:40)
[2018-05-25] MEDS: LISINOPRIL 20 MG TAB PO SCH (07:52)
[2018-05-25] MEDS: amLODIPine 5 MG TAB PO SCH (07:52)
[2018-05-25] MEDS: SUCRALFATE 1 GM TAB PO SCH ×4 (07:52→21:40)
[2018-05-25] MEDS: INSULIN ASPART 100 UNIT/ML 1 ML 10 ML VIAL SQ SCH ×4 (07:53→21:41)
[2018-05-25 11:58] LABS: Anion Gap 7 mmol/L; Blood Urea Nitrogen 21 mg/dL (9-20); Calcium 9.2 mg/dL (8.4-10.2); Carbon Dioxide 28 mmol/L (22-30); Chloride 110 mmol/L (98-107); Glucose 197 mg/dL (74-99); Potassium 3.8 mmol/L (3.5-5.1); Sodium 145 mmol/L (137-145)
[2018-05-25 11:59] LABS: Basophils % (A) 0 %; Eosinophils # (A) 0.1 k/uL (0-0.7); Eosinophils % (A) 1 %; HCT 39.4 % (39.0-53.0); HGB 13.3 gm/dL (13.0-17.5); Lymphocytes # (A) 1.3 k/uL (1.0-4.8); Lymphocytes % (A) 14 %; MCH 29.9 pg (25.0-35.0); MCHC 33.8 g/dL (31.0-37.0); MCV 88.4 fL (80.0-100.0); Mean Platelet Volume 6.8; Monocytes # (A) 0.8 k/uL (0-1.0); Monocytes % (A) 8 %; Neutrophils # (A) 7.4 k/uL (1.3-7.7); Neutrophils % (A) 76 %; Platelet Count 235 k/uL (150-450); RBC 4.46 m/uL (4.30-5.90); RDW 13.4 % (11.5-15.5); WBC 9.8 k/uL (3.8-10.6)
[2018-05-25 12:11] LABS: Glucose,Whole Blood 212 mg/dL (75-99)
[2018-05-25] MEDS ORDERED: amLODIPine 5 MG TAB PO STA (14:41)
[2018-05-25 17:18] LABS: Glucose,Whole Blood 264 mg/dL (75-99)
[2018-05-25 20:52] LABS: Glucose,Whole Blood 190 mg/dL (75-99)
[2018-05-25] MEDS: TRIMETHOBENZAMIDE 100 MG/ML 2 ML VIAL IM PRN (21:18)
[2018-05-25] MEDS: DOXAZOSIN 2 MG TAB PO SCH (21:40)
[2018-05-25] MEDS: INSULIN DETEMIR 100 UNIT/ML 10 ML VIAL SQ SCH (21:41)
[2018-05-25 23:19] VITALS: RESP 16
[2018-05-26] MEDS: ONDANSETRON 4 MG/2 ML VIAL IVP PRN ×2 (01:35→07:41)
[2018-05-26] MEDS: LORazepam 2 MG/ML INJ IV PRN (01:35)
[2018-05-26 07:39] LABS: Glucose,Whole Blood 384 mg/dL (75-99)
[2018-05-26 07:42] VITALS: BP 161/100; PULSE 86; TEMP 98.2
[2018-05-26] MEDS: LISINOPRIL 20 MG TAB PO SCH (08:32)
[2018-05-26] MEDS: INSULIN ASPART 100 UNIT/ML 1 ML 10 ML VIAL SQ SCH ×2 (08:33→13:12)
[2018-05-26] MEDS: PANTOPRAZOLE 40 MG/10 ML VIAL IVP SCH (08:33)
[2018-05-26] MEDS: amLODIPine 5 MG TAB PO SCH (08:33)
[2018-05-26] MEDS: GABAPENTIN 400 MG CAP PO SCH (08:33)
[2018-05-26] MEDS: SUCRALFATE 1 GM TAB PO SCH ×2 (08:33→13:12)
[2018-05-26] MEDS: LOSARTAN 50 MG TAB PO SCH (08:33)
[2018-05-26 09:57] LABS: Basophils % (A) 0 %; Eosinophils % (A) 0 %; HCT 41.5 % (39.0-53.0); HGB 13.5 gm/dL (13.0-17.5); Lymphocytes # (A) 0.6 k/uL (1.0-4.8); Lymphocytes % (A) 6 %; MCH 29.5 pg (25.0-35.0); MCHC 32.4 g/dL (31.0-37.0); Mean Platelet Volume 6.9; Monocytes # (A) 0.5 k/uL (0-1.0); Monocytes % (A) 5 %; Neutrophils # (A) 8.6 k/uL (1.3-7.7); Neutrophils % (A) 89 %; Platelet Count 230 k/uL (150-450); RBC 4.56 m/uL (4.30-5.90); RDW 13.1 % (11.5-15.5); WBC 9.7 k/uL (3.8-10.6)
[2018-05-26 10:28] LABS: Anion Gap 13 mmol/L; Blood Urea Nitrogen 20 mg/dL (9-20); Calcium 9.5 mg/dL (8.4-10.2); Carbon Dioxide 23 mmol/L (22-30); Chloride 103 mmol/L (98-107); Glucose 472 mg/dL (74-99); Potassium 3.7 mmol/L (3.5-5.1); Sodium 139 mmol/L (137-145)
[2018-05-26 12:07] LABS: Glucose,Whole Blood 318 mg/dL (75-99)
[2018-05-26] MEDS ORDERED: INSULIN DETEMIR 100 UNIT/ML 10 ML VIAL SQ SCH (13:45)
--- NOTE | 2018-05-26 19:17 | P.PN ---
Subjective Progress Note Date: 05/25/18 Progress note being dictated for Dr. 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 Evaluated by GI, scheduled for EGD today. NPO. HGB 12.8. No further bleeding. Afebrile, denies chest pain, palpitations or increased shortness of breath. Systolic blood pressures currently in the 160s to 170s. 05/25/2018 status post colonoscopy reporting no active bleeding or pathology to explain symptoms, gastritis of and trouble anxiety, biopsy. Advance diet as tolerated. Post Procedure nausea/wretching, hypertensive. Denies chest pain, palpitations or shortness of breath. Denies lightheadedness dizziness or focal deficits. Hemoglobin 13.3. Objective - Vital Signs Vital signs: Vital Signs Temp 98.8 F 05/25/18 14:31 Pulse 76 05/25/18 14:31 Resp 18 05/25/18 14:31 BP 195/93 05/25/18 14:31 Pulse Ox 99 05/25/18 14:31 Intake & Output 05/25/18 05/25/18 05/26/18 06:59 18:59 06:59 Output Total 1700 400 Balance -1700 -400 Output: Urine 1700 400 Other: Voiding Method Urinal - Exam PHYSICAL EXAM: VITAL SIGNS: [As above] GENERAL: Lying in bed, no acute distress HEENT: Conjunctivae normal. eyes normal. NECK: No JVD. No thyroid enlargement. CARDIOVASCULAR: S1, S2 muffled. No murmur RESPIRATION: Breath sounds diminished in the bases. ABDOMEN: Soft, nontender . No guarding. no masses palpable. Bowel sounds heard. LEGS: No edema. no swelling PSYCHIATRY: Alert and oriented -3, mood and affect normal. NERVOUS SYSTEM: No focal deficits. - Labs CBC & Chem 7: 05/26/18 09:28 05/26/18 09:28 Labs: Abnormal Lab Results - Last 24 Hours (Table) 05/25/18 05/25/18 05/25/18 Range/Units 06:35 10:59 12:05 Chloride 110 H (98-107) mmol/L BUN 21 H (9-20) mg/dL Glucose 197 H (74-99) mg/dL POC Glucose (mg/dL) 198 H 212 H (75-99) mg/dL 05/25/18 Range/Units 17:13 Chloride (98-107) mmol/L BUN (9-20) mg/dL Glucose (74-99) mg/dL POC Glucose (mg/dL) 264 H (75-99) mg/dL Microbiology - Last 24 Hours (Table) 05/22/18 17:11 Blood Culture - Preliminary Blood No Growth after 72 hours Assessment and Plan Assessment: -Incessant vomiting, upper GI bleeding.EGD reported no active bleeding or pathology to explain symptoms, gastritis of the antrum and body, biopsied. - EtOH daily use -Diabetes mellitus type 2 -Hypertension -Gastroesophageal reflux disease -Anxiety, depression, history of -Ongoing use of THC -History of nicotine dependence Plan: Continue current medication regime, monitoring and symptomatic treatment. Maintain PPI. Close monitoring of hemoglobin. Norvasc increased .Close monitoring of blood pressure. Follow closely with GI. Discharge planning in progress for tomorrow. Alcohol/THC cessation readdressed. The impression and plan of care has been dictated as directed. : I performed a history and examination of this patient, discussed the same with the dictator. I agree with the dictator's note ,documented as a scribe. Any additional findings or plans will be noted.
--- NOTE | 2018-05-26 19:58 | P.DS ---
Providers Date of admission: 05/25/18 14:58 Expected date of discharge: 05/26/18 Attending physician: Jeni Snyder Consults: Final Diagnoses: -Incessant vomiting, upper GI bleeding.EGD reported no active bleeding; gastritis of the antrum and body, biopsied. - EtOH daily use -Diabetes mellitus type 2, hemoglobin A1c 8.7. Follow up with tariff inspector outpatient. 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 Evaluated by GI, underwent EGD. Endoscopy reported no active bleeding or pathology to explain symptoms, gastritis of antrum and body ,biopsied. Hemoglobin 13.3 post procedure. Significant clinical improvement. Cleared by GI for discharge. Patient is being discharged home in a stable condition with guarded prognosis. EXAM: GENERAL: Lying in bed, no acute distress CARDIOVASCULAR: S1, S2 muffled. No murmur RESPIRATION: Breath sounds diminished in the bases. ABDOMEN: Soft, nontender . No guarding. Bowel sounds heard. NERVOUS SYSTEM: No focal deficits. The impression and plan of care has been dictated as directed. : I performed a history and examination of this patient, discussed the same with the dictator. I agree with the dictator's note ,documented as a scribe. Any additional findings or plans will be noted. Time taken: 35 minutes Primary care physician: Kumar Sharp Plan - Discharge Summary Discharge Rx Participant: No New Discharge Prescriptions: New Ondansetron Odt [Zofran Odt] 4 mg PO Q8HR PRN #12 tab PRN Reason: Nausea amLODIPine [Norvasc] 10 mg PO DAILY #30 tablet Continue Terazosin [Hytrin] 2 mg PO HS Famotidine [Pepcid] 20 mg PO BID Sucralfate [Carafate] 1 gm PO QID Losartan Potassium [Cozaar] 100 mg PO QAM Gabapentin [Neurontin] 400 mg PO TID Insulin Glargine,Hum.rec.anlog [Basaglar Kwikpen U-100] 26 unit SQ HS Insulin Glargine,Hum.rec.anlog [Basaglar Kwikpen U-100] 30 unit SQ DAILY Omeprazole 20 mg PO DAILY Discontinued Lisinopril 40 mg PO QAM Discharge Medication List Famotidine [Pepcid] 20 mg PO BID 09/11/14 [History] Losartan Potassium [Cozaar] 100 mg PO QAM 09/11/14 [History] Sucralfate [Carafate] 1 gm PO QID 09/11/14 [History] Terazosin [Hytrin] 2 mg PO HS 09/11/14 [History] Gabapentin [Neurontin] 400 mg PO TID 05/22/18 [History] Insulin Glargine,Hum.rec.anlog [Basaglar Kwikpen U-100] 26 unit SQ HS 05/22/18 [ History] Insulin Glargine,Hum.rec.anlog [Basaglar Kwikpen U-100] 30 unit SQ DAILY [History] Omeprazole 20 mg PO DAILY 05/22/18 [History] Ondansetron Odt [Zofran Odt] 4 mg PO Q8HR PRN #12 tab 05/25/18 [Rx] amLODIPine [Norvasc] 10 mg PO DAILY #30 tablet 05/25/18 [Rx] Follow up Appointment(s)/Referral(s): Lila Heath MD [Primary Care Provider] - 05/30/18 2:40 pm Avila Guerrero MD [REFERRING] - 06/07/18 8:30 am Bernardo Moya MD [STAFF PHYSICIAN] - 06/10/18 12:15 pm Ambulatory/Diagnostic Orders: Complete Blood Count w/diff [LAB.AMB] Time Frame: 3 Days, Location: None Selected Patient Instructions/Handouts: Gastrointestinal Bleeding (DC) Activity/Diet/Wound Care/Special Instructions: No THC, no alcohol DIet: soft [place], consistent carb Accu-Cheks before meals and at bedtime, maintain log intake to follow-up visit with PCP for further recommendations Activity: limited till F/U Discharge Disposition: HOME SELF-CARE
== END 2018-05-26 14:31 | disposition home or self-care (01) | DRG 379 ==
LOC: EC 16:35 → 4MS4W 19:33 → OBSVTOIN 05-25 14:58
PROVIDERS: ADMIT Hospitalist; ATTEND Hospitalist
PROC: 0DB78ZX Excision of Stomach, Pylorus, Via Natural or Artificial Opening Endoscopic, Diagnostic (ICD-10-PCS; principal; 2018-05-24 07:30)
DX: K92.2 Gastrointestinal hemorrhage, unspecified (principal); E11.40 Type 2 diabetes mellitus with diabetic neuropathy, unspecified; F32.9 Major depressive disorder, single episode, unspecified; F41.9 Anxiety disorder, unspecified; I10 Essential (primary) hypertension; K21.9 Gastro-esophageal reflux disease without esophagitis; K29.70 Gastritis, unspecified, without bleeding; D72.829 Elevated white blood cell count, unspecified; E11.43 Type 2 diabetes mellitus with diabetic autonomic (poly)neuropathy; K31.84 Gastroparesis; Z79.899 Other long term (current) drug therapy; Z79.4 Long term (current) use of insulin; Z87.891 Personal history of nicotine dependence
CPT/HCPCS: 36415; 43239; 71046; 80048; 80053; 80320; 81001; 82009; 82271; 83036; 83605; 85025; 85610; 85730; 86850; 86900; 86901; 87040; 87086; 88305; 96361; 96374; 96375; 99285

== ENCOUNTER → 2018-08-01 | Outpatient (CLI) | payer OTHER ==
[2018-08-01 15:56] LABS: C-Peptide <0.05 ng/mL (0.81-3.85)
[2018-08-01 16:00] LABS: Vitamin D 25 Hydroxy 32.3 ng/mL (30.0-100.0)
[2018-08-01 16:16] LABS: Cholesterol 137 mg/dL (0-200); Glucose 84 mg/dL (70-110); Triglycerides <50.0 mg/dL (0.0-149.0); VLDL Calculation 9.98 mg/dL (5.00-40.00)
[2018-08-01 18:46] LABS: Hemoglobin A1C 9.2 % (4.0-6.0)
== END | disposition home or self-care (01) ==
LOC: LABWHC1 07:38
PROVIDERS: ATTEND Internal Medicine
DX: E10.65 Type 1 diabetes mellitus with hyperglycemia (principal)
CPT/HCPCS: 36415; 80061; 82043; 82306; 82570; 82947; 83036; 84439; 84443; 84681

== ENCOUNTER → 2018-11-22 | Outpatient (CLI) | payer OTHER ==
[2018-11-22 20:32] LABS: Hemoglobin A1C 8.5 % (4.0-6.0)
== END | disposition home or self-care (01) ==
LOC: LABWHC1 09:11
PROVIDERS: ATTEND Internal Medicine
DX: E10.65 Type 1 diabetes mellitus with hyperglycemia (principal)
CPT/HCPCS: 36415; 83036

== ENCOUNTER → 2019-03-27 | Outpatient (CLI) | payer OTHER ==
[2019-03-27 17:47] LABS: Hemoglobin A1C 8.1 % (4.0-6.0)
== END | disposition home or self-care (01) ==
LOC: LABWHC1 08:59
PROVIDERS: ATTEND Internal Medicine
DX: E10.65 Type 1 diabetes mellitus with hyperglycemia (principal)
CPT/HCPCS: 36415; 83036

== ENCOUNTER → 2019-06-14 | Outpatient (CLI) | payer OTHER ==
[2019-06-14 18:37] LABS: African American GFR (CKD) 102.7 (60.0-200.0); Anion Gap 6.6 mmol/L (4.00-12.00); Calcium 9.7 mg/dL (8.7-10.3); Carbon Dioxide 28.4 mmol/L (21.6-31.8); Chol/HDL Ratio 3.76; LDL Cholesterol,Calculated 114.8 mg/dL (0.0-131.0); Non-African American GFR(CKD) 88.6 (60.0-200.0); Potassium 4.3 mmol/L (3.5-5.5); VLDL Calculation 12.2 mg/dL (5.00-40.00)
[2019-06-14 21:05] LABS: Hemoglobin A1C 8.9 % (4.0-6.0)
[2019-06-14 21:52] LABS: Urine Creatinine 105.6 mg/dL
== END | disposition home or self-care (01) ==
LOC: LABWHC1 08:03
PROVIDERS: ATTEND Internal Medicine
DX: E10.65 Type 1 diabetes mellitus with hyperglycemia (principal)
CPT/HCPCS: 36415; 80048; 80061; 82043; 82570; 83036

== ENCOUNTER → 2020-04-03 | Outpatient (CLI) | payer OTHER ==
[2020-04-03 16:30] LABS: Hemoglobin A1C 9.6 % (4.0-6.0)
== END | disposition home or self-care (01) ==
LOC: LABWHC1 07:07
PROVIDERS: ATTEND Internal Medicine
DX: E10.65 Type 1 diabetes mellitus with hyperglycemia (principal)
CPT/HCPCS: 36415; 83036

== ENCOUNTER → 2020-07-02 | Outpatient (CLI) | payer OTHER ==
[2020-07-02 22:26] LABS: African American GFR (CKD) 74.3 (60.0-200.0); Anion Gap 7.9 mmol/L (4.00-12.00); BUN/Creat Ratio 23.08 Ratio (12.00-20.00); Calcium 9.6 mg/dL (8.7-10.3); Carbon Dioxide 27.1 mmol/L (21.6-31.8); Chol/HDL Ratio 3.46; LDL Cholesterol,Calculated 95.2 mg/dL (0.0-131.0); Non-African American GFR(CKD) 64.1 (60.0-200.0); VLDL Calculation 17.8 mg/dL (5.00-40.00)
[2020-07-02 22:37] LABS: Urine Creatinine 63.6 mg/dL
[2020-07-03 03:17] LABS: Hemoglobin A1C 8.6 % (4.0-6.0)
== END | disposition home or self-care (01) ==
LOC: LABWHC1 15:56
PROVIDERS: ATTEND Internal Medicine
DX: E10.65 Type 1 diabetes mellitus with hyperglycemia (principal); E55.9 Vitamin D deficiency, unspecified
CPT/HCPCS: 36415; 80048; 80061; 82043; 82306; 82570; 83036

== ENCOUNTER → 2021-01-07 | Outpatient (CLI) | payer OTHER ==
[2021-01-07 19:18] LABS: Hemoglobin A1C 8.8 % (4.0-6.0)
== END | disposition home or self-care (01) ==
LOC: LABWHC1 09:40
PROVIDERS: ATTEND Family Medicine
DX: E10.65 Type 1 diabetes mellitus with hyperglycemia (principal)
CPT/HCPCS: 36415; 83036

== ENCOUNTER → 2021-04-30 | Outpatient (CLI) | payer OTHER | END | disposition home or self-care (01) | LOC: LABWHC1 10:07 | PROVIDERS: ATTEND Family Medicine | DX: E10.65 Type 1 diabetes mellitus with hyperglycemia (principal) | CPT/HCPCS: 36415; 83036 ==

== ENCOUNTER → 2021-05-07 | Outpatient (CLI) | payer OTHER ==
--- NOTE | 2021-05-07 10:56 | MR ---
EXAMINATION TYPE: MR shoulder RT wo con DATE OF EXAM: 05/07/2021 COMPARISON: Most recent plain film 02/27/2013 HISTORY: Rt shoulder pain - Painful to raise arm above head TECHNIQUE: Multiplanar, multisequence imaging of the right shoulder is performed without contrast. FINDINGS: There is motion on the exam. Rotator Cuff: There is abnormal thickening of the rotator cuff, abnormal increased intrinsic signal, no krishna tear Acromioclavicular Joint: There is arthropathy present, mass effect is present on the musculotendinous junction. Distal acromial spur is present. Glenohumeral Joint: Intact Labrum: The labrum appears grossly intact given limitation of non-arthrogram study. Biceps Tendon: The long head of biceps is in normal location within bicipital groove, small amount of fluid present along the tendon. Bone marrow signal: Pseudocysts are present within the humeral head Other: There is some fluid signal in the subacromial subdeltoid bursa. There is an oval cystic focus present at the level the scapular spine measuring 13 mm in greatest dimension nonaggressive character istics, smaller focus more peripherally measures 8 mm with similar signal characteristics, indetermin ate. IMPRESSION: Correlate for tendinosis, impingement. Additional findings above.
--- NOTE | 2021-05-07 13:16 | CT ---
EXAMINATION TYPE: CT shoulder RT wo con DATE OF EXAM: 05/07/2021 COMPARISON: MRI 05/07/2021 HISTORY: Abnormal MRI-right scapula CT DLP: 450.60 mGycm Automated exposure control for dose reduction was used. FINDINGS: There is hypertrophic arthropathy of the AC joint. There is a lucent lesion measuring 7 mm within thi s scapula too small to characterize. Visualized rib cage intact. The humeral head is somewhat high ri ding in position which can be an indirect sign of rotator cuff disease. No acute fracture. No disloca tion. IMPRESSION: 1. Severe AC joint arthropathy correlate for chronic rotator cuff disease. 2. Too small to characterize scapular lucent intraosseous lesion measuring 7 mm could be correlated w ith bone scan on a short-term basis as clinically warranted.
== END | disposition home or self-care (01) ==
LOC: RADMRIMAIN 08:24
PROVIDERS: ATTEND Psychiatry & Neurology Neurology
DX: M25.511 Pain in right shoulder (principal); M19.011 Primary osteoarthritis, right shoulder; M89.8X1 Other specified disorders of bone, shoulder

== ENCOUNTER → 2021-12-03 | Outpatient (CLI) | payer OTHER ==
[2021-12-03 20:50] LABS: African American GFR (CKD) 81.2 (60.0-200.0); BUN/Creat Ratio 15.58 Ratio (12.00-20.00); Blood Urea Nitrogen 18.7 mg/dL (9.0-27.0); Calcium 9.8 mg/dL (8.7-10.3); Carbon Dioxide 25.8 mmol/L (20.0-27.5); Chloride 102 mmol/L (96-109); Chol/HDL Ratio 4.08 Ratio; Glucose 231 mg/dL (70-110); LDL Cholesterol,Calculated 117.6 mg/dL (0.0-131.0); Non-African American GFR(CKD) 70.1 (60.0-200.0); Potassium 4.5 mmol/L (3.5-5.5); Sodium 139 mmol/L (135-145); VLDL Calculation 12.96 mg/dL (5.00-40.00)
[2021-12-04 04:50] LABS: Urine Creatinine 87.8 mg/dL (39.0-259.0)
== END | disposition home or self-care (01) ==
LOC: LABWHC1 14:08
PROVIDERS: ATTEND Internal Medicine
DX: E10.65 Type 1 diabetes mellitus with hyperglycemia (principal); E55.9 Vitamin D deficiency, unspecified
CPT/HCPCS: 36415; 80048; 80061; 82043; 82306; 82570; 83036

== ENCOUNTER → 2022-04-15 | Outpatient (CLI) | payer OTHER | END | disposition home or self-care (01) | LOC: LABWHC1 09:02 | PROVIDERS: ATTEND Family Medicine | DX: E10.65 Type 1 diabetes mellitus with hyperglycemia (principal) | CPT/HCPCS: 36415; 83036 ==

== ENCOUNTER → 2023-04-05 | Outpatient (CLI) | payer OTHER ==
[2023-04-05 15:33] LABS: Basophils # (A) 0.02 X 10*3/uL (0.00-0.10); Basophils % (A) 0.3 %; Eosinophils # (A) 0.29 X 10*3/uL (0.04-0.35); Eosinophils % (A) 3.8 %; HCT 36.1 % (39.6-50.0); Lymphocytes # (A) 2.26 X 10*3/uL (0.90-5.00); Lymphocytes % (A) 29.7 %; MCH 28.6 pg (27.0-32.0); MCHC 33.2 g/dL (32.0-37.0); Monocytes # (A) 0.71 X 10*3/uL (0.20-1.00); Monocytes % (A) 9.3 %; NRBC Per 100 WBC 0 X 10*3/uL (0.00-0.01); Neutrophils % (A) 56.6 %; Platelet Count 291 X 10*3/uL (140-440); RDW 12.5 % (11.5-14.5)
== END | disposition home or self-care (01) ==
LOC: LABWHC1 09:30
PROVIDERS: ATTEND Student in an Organized Health Care Education/Training Program
DX: D64.9 Anemia, unspecified (principal)
CPT/HCPCS: 36415; 85025

== ENCOUNTER → 2023-04-21 | Outpatient (CLI) | payer OTHER ==
[2023-04-21 15:43] LABS: MCHC 32.4 g/dL (32.0-37.0); MCV 89.4 FL (80.0-97.0); Mean Platelet Volume 10.1 FL (9.5-12.2); NRBC Per 100 WBC 0 X 10*3/uL (0.00-0.01); Platelet Count 307 X 10*3/uL (140-440); RBC 4.14 X 10*6/uL (4.40-5.60); RDW 13.1 % (11.5-14.5); WBC 8.26 X 10*3/uL (4.50-10.00)
[2023-04-21 15:52] LABS: Immunoglobulin M <35.0 mg/dL (40.0-280.0)
[2023-04-21 16:01] LABS: % Iron Saturation 16.86 (15.00-50.00); BUN/Creat Ratio 18.83 Ratio (12.00-20.00); Blood Urea Nitrogen 33.9 mg/dL (9.0-27.0); Chloride 106 mmol/L (96-109); Glucose 120 mg/dL (70-110); Iron 58 UG/DL (65-175); Magnesium 2.2 mg/dL (1.5-2.4); Phosphorus 3.6 mg/dL (2.4-5.1); Potassium 4.6 mmol/L (3.5-5.5); Sodium 142 mmol/L (135-145); Total Iron Binding Capacity 344 UG/DL (228-460); Uric Acid 5.1 mg/dL (3.7-8.7)
[2023-04-21 16:02] LABS: ALT 25 U/L (10-49); AST 24 U/L (14-35); Albumin 4.4 g/dL (3.8-4.9); Alkaline Phosphatase 64 U/L (41-126); Calcium 9.9 mg/dL (8.7-10.3); Globulin 2.1 g/dL (1.6-3.3); Total Bilirubin 0.3 mg/dL (0.3-1.2); Total Protein 6.5 g/dL (6.2-8.2)
[2023-04-21 16:22] LABS: Hepatitis A Antibody IgM Nonreactive; Hepatitis B Core IgM Nonreactive; Hepatitis B Surface Antigen Nonreactive; Hepatitis C IgG Antibody Nonreactive
[2023-04-21 16:45] LABS: Appearance,Urine Clear (Clear); Bilirubin,Urine Negative (Negative); Blood,Urine Negative (Negative); Color,Urine Yellow (Yellow); Ketones,Urine Negative (Negative); Nitrite,Urine Negative (Negative); PH, Urine 5.5; Specific Gravity,Urine 1.014 (1.001-1.030); Urobilinogen,Urine 0.2 E.U./DL
[2023-04-22 09:35] LABS: Total Volume 24 Hour,Urine 2500 mL
[2023-04-22 13:45] LABS: C-ANCA <1:20 Titer (<1:20)
[2023-04-23 11:59] LABS: Free Kappa Lt Chain Qnt, Serum 3.35 mg/dL (0.33-1.94)
== END | disposition home or self-care (01) ==
LOC: LABWHC1 08:32
PROVIDERS: ATTEND Internal Medicine
DX: E55.9 Vitamin D deficiency, unspecified (principal); N39.0 Urinary tract infection, site not specified; D63.1 Anemia in chronic kidney disease; M10.9 Gout, unspecified; N18.31 Chronic kidney disease, stage 3a; R53.83 Other fatigue
CPT/HCPCS: 36415; 80053; 80074; 81003; 81050; 82043; 82306; 82570; 82728; 83036; 83516; 83540; 83550; 83735; 83883; 83970; 84100; 84156; 84550; 85027; 86038; 86160; 86162; 86225; 86255; 86334; 87390

== ENCOUNTER → 2023-05-31 | Outpatient (CLI) | payer OTHER ==
--- NOTE | 2023-05-31 16:25 | US ---
EXAMINATION TYPE: US kidneys/renal and bladder DATE OF EXAM: 05/31/2023 COMPARISON: CT 04/16/2012 CLINICAL INDICATION: Male, 53 years old with history of N18.31 CHRONIC KIDNEY DISEASE, STAGE 3A; Hx H TN, DM, Smoker; Patient states back pain, nausea, and microscopic hematuria EXAM MEASUREMENTS: Right Kidney: 9.8 x 5.9 x 5.5 cm Left Kidney: 12.8 x 5.6 x 5.3 cm No hydronephrosis on either side there are linear echoes throughout both kidneys, either prominent va scular reflectors or vascular calcifications. No discrete masses identified on either side. Bladder: Partially distended bladder shows no gross abnormality. Bilateral Jets seen: patient not properly prepped Normal Post Void Residual: NA IMPRESSION: No hydronephrosis.
== END | disposition home or self-care (01) ==
LOC: RADUSWWP 15:35
PROVIDERS: ATTEND Internal Medicine
DX: N18.31 Chronic kidney disease, stage 3a (principal); E11.22 Type 2 diabetes mellitus with diabetic chronic kidney disease; I12.9 Hypertensive chronic kidney disease with stage 1 through stage 4 chronic kidney disease, or unspecified chronic kidney disease; R11.10 Vomiting, unspecified; R31.1 Benign essential microscopic hematuria; M54.9 Dorsalgia, unspecified
CPT/HCPCS: 76770

== ENCOUNTER 2023-11-03 16:45 | Emergency (ER) | payer OTHER ==
--- NOTE | 2023-11-03 18:01 | ED ---
Abdominal Pain HPI - General Source: patient, RN notes reviewed Mode of arrival: ambulatory Limitations: no limitations <Vivian Irwin - Last Filed: 11/03/23 18:00> <Salina Moore - Last Filed: 11/12/23 08:19> - General Chief Complaint: Abdominal Pain Stated Complaint: vomitting with blood, Type 1 diabetic Time Seen by Provider: 11/03/23 18:00 - History of Present Illness Initial Comments: Quick note: 53-year-old male presented to the ER with a chief complaint of nausea and vomiting. Patient has a past medical history significant of diabetes. He states his vomiting started around 9 AM and has been consistently every 5 minutes. He also was endorsing epigastric abdominal pain. Admits to fevers but denies chills. (Vivian Irwin) 53-year-old male presents emergency department with a chief complaint of nausea and vomiting. States that he had vomiting which started around 9 AM. He has had numerous episodes, vomiting every 5 minutes. Does admit to some bilateral abdominal pain from retching. States that he does have history of this in the past. Admits to gastroparesis. Patient does have diabetes. He has an insulin pump. Patient's sugars have been running high. Patient also smokes marijuana. He did not attempt to take anything at home for his nausea as he does not have anything. States it has been several years since he had an episode. Denies eating any tainted foods. No hematemesis. Denies black or bloody stools. No diarrhea. No fevers. No other alleviating, precipitating or modifying factors (Salina Moore) - Related Data Home Medications Medication Instructions Recorded Confirmed Famotidine [Pepcid] 20 mg PO BID 09/11/14 05/22/18 Losartan Potassium [Cozaar] 100 mg PO QAM 09/11/14 05/22/18 Sucralfate [Carafate] 1 gm PO QID 09/11/14 05/22/18 Terazosin [Hytrin] 2 mg PO HS 09/11/14 05/22/18 Gabapentin [Neurontin] 400 mg PO TID 05/22/18 05/22/18 Insulin Glargine,Hum.rec.anlog 26 unit SQ 05/22/18 05/22/18 [Basaglar Kwikpen U-100] Insulin Glargine,Hum.rec.anlog 30 unit SQ DAILY 05/22/18 05/22/18 [Basaglar Kwikpen U-100] Omeprazole 20 mg PO DAILY 05/22/18 05/22/18 Previous Rx's Medication Instructions Recorded Ondansetron Odt [Zofran Odt] 4 mg PO Q8HR PRN #12 tab 05/25/18 amLODIPine [Norvasc] 10 mg PO DAILY #30 tablet 05/25/18 Ondansetron Odt [Zofran Odt] 4 mg PO Q8HR PRN #30 tab 11/03/23 Allergies Allergy/AdvReac Type Severity Reaction Status Date / Time No Known Allergies Allergy Verified 11/03/23 17:05 Review of Systems ROS Other: All systems not noted in ROS Statement are negative. <Vivian Irwin - Last Filed: 11/03/23 18:00> ROS Other: All systems not noted in ROS Statement are negative. <Salina Moore - Last Filed: 11/12/23 08:19> ROS Statement: Those systems with pertinent positive or pertinent negative responses have been documented in the HPI. Past Medical History Past Medical History: Diabetes Mellitus, GERD/Reflux, Hypertension Additional Past Medical History / Comment(s): PT STATES HE FREQUENTLY VOMITS BLOOD, History of Any Multi-Drug Resistant Organisms: None Reported Additional Past Surgical History / Comment(s): colonoscopy Past Anesthesia/Blood Transfusion Reactions: No Reported Reaction Past Psychological History: Anxiety, Depression Smoking Status: Never smoker Past Alcohol Use History: Occasional Past Drug Use History: Marijuana - Past Family History Mother Family Medical History: No Reported History <Vivian Irwin - Last Filed: 11/03/23 18:00> General Exam Limitations: no limitations <Vivian Irwin - Last Filed: 11/03/23 18:00> General appearance: alert, in distress, other (Persistently vomiting) Head exam: Present: atraumatic, normocephalic, normal inspection Eye exam: Present: normal appearance, PERRL, EOMI. Absent: scleral icterus, conjunctival injection, periorbital swelling ENT exam: Present: normal exam, mucous membranes moist Neck exam: Present: normal inspection. Absent: tenderness, meningismus, lymphadenopathy Respiratory exam: Present: normal lung sounds bilaterally. Absent: respiratory distress, wheezes, rales, rhonchi, stridor Cardiovascular Exam: Present: regular rate, normal rhythm, normal heart sounds. Absent: systolic murmur, diastolic murmur, rubs, gallop, clicks GI/Abdominal exam: Present: soft, tenderness (Patient has generalized abdominal wall discomfort from retching), normal bowel sounds. Absent: distended, guarding, rebound, rigid Extremities exam: Present: normal inspection, full ROM, normal capillary refill. Absent: tenderness, pedal edema, joint swelling, calf tenderness Back exam: Present: normal inspection Neurological exam: Present: alert, oriented X3, CN II-XII intact Psychiatric exam: Present: normal affect, normal mood Skin exam: Present: warm, dry, intact, normal color. Absent: rash <Salina Moore - Last Filed: 11/12/23 08:19> - General Exam Comments Initial Comments: Visual Physical Exam Vital signs reviewed General: Well-appearing, nontoxic, no acute distress. Head: Normocephalic, atraumatic Eyes: PERRLA, EOMI ENT: Airway patent Chest: Nonlabored breathing Skin: No visual rash, normal skin tone Neuro: Alert and oriented 3 Musculoskeletal: No gross abnormalities (Vivian Irwin) Course Vital Signs 11/03/23 11/03/23 11/03/23 17:03 18:15 19:49 Temperature 98.3 F Pulse Rate 63 47 L 72 Respiratory 18 16 16 Rate Blood Pressure 193/88 214/94 130/77 O2 Sat by Pulse 99 100 98 Oximetry 11/03/23 11/03/23 21:00 21:57 Temperature 98.4 F Pulse Rate 76 80 Respiratory 16 16 Rate Blood Pressure 148/41 146/71 O2 Sat by Pulse 99 99 Oximetry Medical Decision Making <Vivian Irwin - Last Filed: 11/03/23 18:00> - Lab Data Result diagrams: 11/03/23 18:14 11/03/23 18:14 <Salina Moore - Last Filed: 11/12/23 08:19> - Medical Decision Making I performed the quick note portion of this chart. Electronically signed by Vivian Irwin PA-C (Vivian Irwin) Was pt. sent in by a medical professional or institution (OSIEL Shaikh, ROTARY DRYER OPERATOR, urgent care, hospital, or alf...) When possible be specific @ -No Did you speak to anyone other than the patient for history (EMS, parent, family, police, friend...)? What history was obtained from this source @ -I spoke with the patient's significant other for history Did you review nursing and triage notes (agree or disagree)? Why? @ -I reviewed and agree with nursing and triage notes Were old charts reviewed (outside hosp., previous admission, EMS record, old EKG, old radiological studies, urgent care reports/EKG's, alf records)? Report findings @ -No old charts were reviewed Differential Diagnosis (chest pain, altered mental status, abdominal pain women, abdominal pain men, vaginal bleeding, weakness, fever, dyspnea, syncope, headache, dizziness, GI bleed, back pain, seizure, CVA, palpatations, mental health, musculoskeletal)? @ -Differential Abdominal Pain Men: Appendicitis, cholecystitis, diverticulosis, ischemic bowel, pancreatitis, hepatitis, UTI, gastroenteritis, AAA, incarcerated hernia, bowel obstruction, constipation, inflammatory bowel, hepatitis, peptic ulcer disease, splenic infarction, perforated viscus, testicular torsion, this is not meant to be an all-inclusive list EKG interpreted by me (3pts min.). @ -Yes and demonstrates sinus bradycardia with a rate of 48. [place] interval 130. QRS 105. QTc of 484. No acute ST segment elevations or depressions X-rays interpreted by me (1pt min.). @ -None done CT interpreted by me (1pt min.). @ -Yes and demonstrates no acute process U/S interpreted by me (1pt. min.). @ -None done What testing was considered but not performed or refused? (CT, X-rays, U/S, labs)? Why? @ -None What meds were considered but not given or refused? Why? @ -None Did you discuss the management of the patient with other professionals (professionals i.e. OSIEL Shaikh, ROTARY DRYER OPERATOR, lab, RT, psych nurse, social service director, distillation operator, teacher, staff air defense officer, heel caser)? Give summary @ -No Was smoking cessation discussed for >3mins.? @ -No Was critical care preformed (if so, how long)? @ -No Were there social determinants of health that impacted care today? How? (Homelessness, low income, unemployed, alcoholism, drug addiction, transportation, low edu. Level, literacy, decrease access to med. care, intermediate, rehab)? @ -No Was there de-escalation of care discussed even if they declined (Discuss DNR or withdrawal of care, Hospice)? DNR status @ -No What co-morbidities impacted this encounter? (DM, HTN, Smoking, COPD, CAD, Cancer, CVA, ARF, Chemo, Hep., AIDS, mental health diagnosis, sleep apnea, morbid obesity)? @ -Diabetes type 1, THC use Was patient admitted / discharged? Hospital course, mention meds given and route, prescriptions, significant lab abnormalities, going to OR and other pertinent info. @ -Upon arrival patient seen and evaluated in room 6. Thorough history and physical exam was performed. IV access was established. Patient was given IV fluids and nausea medications. Laboratory studies are conducted. CT was performed. Results are discussed with patient. At this time the patient feels great. He is able to tolerate oral intake of fluid and food. Patient does bolus himself insulin with his pump. He is not in DKA. Patient agreeable to going home at this time. Patient will be prescribed Zofran. Instructed to follow-up with his primary care doctor. Persuaded to discontinue use of THC return for any new or worsening symptoms. Patient agreeable to the plan he was discharged in stable condition Undiagnosed new problem with uncertain prognosis? @ -No Drug Therapy requiring intensive monitoring for toxicity (Heparin, Nitro, Insulin, Cardizem)? @ -No Were any procedures done? @ -No Diagnosis/symptom? @ -Acute nausea vomiting, acute hyperglycemia, history of type 1 diabetes Acute, or Chronic, or Acute on Chronic? @ -Acute Uncomplicated (without systemic symptoms) or Complicated (systemic symptoms)? @ -Complicated Side effects of treatment? @ -No Exacerbation, Progression, or Severe Exacerbation? @ -Yes Poses a threat to life or bodily function? How? (Chest pain, [place], [place], pneumonia, PE, COPD, DKA, ARF, appy, cholecystitis, CVA, Diverticulitis, Homicidal, Suicidal, threat to staff... and all critical care pts) @ -No (Salina Moore) - Lab Data Lab Results 11/03/23 11/03/23 11/03/23 Range/Units 18:14 18:14 18:14 WBC 15.4 H (3.8-10.6) k/uL RBC 4.18 L (4.30-5.90) m/uL Hgb 12.3 L (13.0-17.5) gm/dL Hct 36.9 L (39.0-53.0) % MCV 88.3 (80.0-100.0) fL MCH 29.4 (25.0-35.0) pg MCHC 33.3 (31.0-37.0) g/dL RDW 12.9 (11.5-15.5) % Plt Count 280 (150-450) k/uL MPV 7.7 Neutrophils % 92 % Lymphocytes % 5 % Monocytes % 3 % Eosinophils % 0 % Basophils % 0 % Neutrophils # 14.2 H (1.3-7.7) k/uL Lymphocytes # 0.7 L (1.0-4.8) k/uL Monocytes # 0.4 (0-1.0) k/uL Eosinophils # 0.1 (0-0.7) k/uL Basophils # 0.0 (0-0.2) k/uL Sodium 139 (137-145) mmol/L Potassium 4.9 (3.5-5.1) mmol/L Chloride 106 (98-107) mmol/L Carbon Dioxide 19 L (22-30) mmol/L Anion Gap 14 mmol/L BUN 29 H (9-20) mg/dL Creatinine 1.37 H (0.66-1.25) mg/dL Est GFR (CKD-EPI)AfAm 68 (>60 ml/min/1.73 sqM) Est GFR (CKD-EPI)NonAf 59 (>60 ml/min/1.73 sqM) Glucose 370 H (74-99) mg/dL POC Glucose (mg/dL) (70-110) mg/dL POC Glu Opal Miner ID Plasma Lactic Acid Christopher 2.0 (0.7-2.0) mmol/L Calcium 10.4 H (8.4-10.2) mg/dL Total Bilirubin 1.2 (0.2-1.3) mg/dL AST 29 (17-59) U/L ALT 25 (4-49) U/L Alkaline Phosphatase 87 (38-126) U/L Total Protein 7.6 (6.3-8.2) g/dL Albumin 5.1 H (3.5-5.0) g/dL Amylase 56 (30-110) U/L Lipase 49 (23-300) U/L Urine Color Urine Appearance (Clear) Urine pH (5.0-8.0) Ur Specific [place] (1.001-1.035) Urine Protein (Negative) Urine Glucose (UA) (Negative) Urine Ketones (Negative) Urine Blood (Negative) Urine Nitrite (Negative) Urine Bilirubin (Negative) Urine Urobilinogen (<2.0) mg/dL Ur Leukocyte Esterase (Negative) Urine RBC (0-5) /hpf Urine WBC (0-5) /hpf Hyaline Casts (0-2) /lpf Urine Mucus (None) /hpf Acetone, Qual Positive (Negative) 11/03/23 11/03/23 Range/Units 18:20 21:55 WBC (3.8-10.6) k/uL RBC (4.30-5.90) m/uL Hgb (13.0-17.5) gm/dL Hct (39.0-53.0) % MCV (80.0-100.0) fL MCH (25.0-35.0) pg MCHC (31.0-37.0) g/dL RDW (11.5-15.5) % Plt Count (150-450) k/uL MPV Neutrophils % % Lymphocytes % % Monocytes % % Eosinophils % % Basophils % % Neutrophils # (1.3-7.7) k/uL Lymphocytes # (1.0-4.8) k/uL Monocytes # (0-1.0) k/uL Eosinophils # (0-0.7) k/uL Basophils # (0-0.2) k/uL Sodium (137-145) mmol/L Potassium (3.5-5.1) mmol/L Chloride (98-107) mmol/L Carbon Dioxide (22-30) mmol/L Anion Gap mmol/L BUN (9-20) mg/dL Creatinine (0.66-1.25) mg/dL Est GFR (CKD-EPI)AfAm (>60 ml/min/1.73 sqM) Est GFR (CKD-EPI)NonAf (>60 ml/min/1.73 sqM) Glucose (74-99) mg/dL POC Glucose (mg/dL) 368 H (70-110) mg/dL POC Glu Opal Miner ID Jaclyn Brantley Plasma Lactic Acid Christopher (0.7-2.0) mmol/L Calcium (8.4-10.2) mg/dL Total Bilirubin (0.2-1.3) mg/dL AST (17-59) U/L ALT (4-49) U/L Alkaline Phosphatase (38-126) U/L Total Protein (6.3-8.2) g/dL Albumin (3.5-5.0) g/dL Amylase (30-110) U/L Lipase (23-300) U/L Urine Color Colorless Urine Appearance Clear (Clear) Urine pH 6.0 (5.0-8.0) Ur Specific [place] 1.033 (1.001-1.035) Urine Protein 2+ H (Negative) Urine Glucose (UA) 4+ H (Negative) Urine Ketones 1+ H (Negative) Urine Blood Small H (Negative) Urine Nitrite Negative (Negative) Urine Bilirubin Negative (Negative) Urine Urobilinogen <2.0 (<2.0) mg/dL Ur Leukocyte Esterase Negative (Negative) Urine RBC 1 (0-5) /hpf Urine WBC 1 (0-5) /hpf Hyaline Casts 5 H (0-2) /lpf Urine Mucus Rare H (None) /hpf Acetone, Qual (Negative) Disposition <Vivian Irwin - Last Filed: 11/03/23 18:00> Is patient prescribed a controlled substance at d/c from ED?: No Time of Disposition: 21:21 <Salina Moore - Last Filed: 11/12/23 08:19> Clinical Impression: Acute vomiting Disposition: HOME SELF-CARE Condition: Stable Instructions (If sedation given, give patient instructions): Acute Nausea and Vomiting (ED) Additional Instructions: Use the Zofran every 8 hours as needed for nausea. Follow-up with your primary care doctor and return should your symptoms return Prescriptions: Ondansetron Odt [Zofran Odt] 4 mg PO Q8HR PRN #30 tab PRN Reason: Nausea Referrals: Blanca Godoy [Primary Care Provider] - 1-2 days
[2023-11-03 18:16] VITALS: RESP 16
[2023-11-03 18:22] LABS: Glucose,Whole Blood 368 mg/dL (70-110)
[2023-11-03 18:22] LABS: Basophils % (A) 0 %; Eosinophils # (A) 0.1 k/uL (0-0.7); Eosinophils % (A) 0 %; HCT 36.9 % (39.0-53.0); HGB 12.3 gm/dL (13.0-17.5); Lymphocytes # (A) 0.7 k/uL (1.0-4.8); Lymphocytes % (A) 5 %; MCH 29.4 pg (25.0-35.0); MCHC 33.3 g/dL (31.0-37.0); MCV 88.3 fL (80.0-100.0); Mean Platelet Volume 7.7; Monocytes # (A) 0.4 k/uL (0-1.0); Monocytes % (A) 3 %; Neutrophils # (A) 14.2 k/uL (1.3-7.7); Neutrophils % (A) 92 %; Platelet Count 280 k/uL (150-450); RBC 4.18 m/uL (4.30-5.90); RDW 12.9 % (11.5-15.5); WBC 15.4 k/uL (3.8-10.6)
[2023-11-03 18:31] LABS: ALT 25 U/L (4-49); AST 29 U/L (17-59); African American GFR (CKD) 68 (>60 ml/min/1.73 sqM); Albumin 5.1 g/dL (3.5-5.0); Alkaline Phosphatase 87 U/L (38-126); Amylase 56 U/L (30-110); Anion Gap 14 mmol/L; Blood Urea Nitrogen 29 mg/dL (9-20); Calcium 10.4 mg/dL (8.4-10.2); Carbon Dioxide 19 mmol/L (22-30); Chloride 106 mmol/L (98-107); Glucose 370 mg/dL (74-99); Lipase 49 U/L (23-300); Non-African American GFR(CKD) 59 (>60 ml/min/1.73 sqM); Potassium 4.9 mmol/L (3.5-5.1); Sodium 139 mmol/L (137-145); Total Bilirubin 1.2 mg/dL (0.2-1.3); Total Protein 7.6 g/dL (6.3-8.2)
[2023-11-03] MEDS: ONDANSETRON 4 MG/2 ML VIAL IVP STA (18:55)
[2023-11-03] MEDS: METOCLOPRAMIDE 5 MG/ML 2 ML VIAL IVP STA (19:32)
[2023-11-03] MEDS: HYDROmorphone 1 MG/ML 1 ML SYRINGE IVP STA (19:33)
[2023-11-03] MEDS: diphenhydrAMINE 50 MG/ML 1 ML VIAL IVP STA (19:33)
[2023-11-03] MEDS: SODIUM CHLORIDE 0.9% 2,000 ML IV ONE (19:34)
--- NOTE | 2023-11-03 20:36 | CT ---
EXAMINATION TYPE: CT abdomen pelvis w con CT DLP: 814.3 mGycm, Automated exposure control for dose reduction was used. DATE OF EXAM: 11/03/2023 8:15 PM COMPARISON: None CLINICAL INDICATION:Male, 53 years old with history of abd pain; N/V, epigastric pain. Vomiting blood . TECHNIQUE: Axial CT abdomen pelvis w con;Sagittal and coronal reformats were created on a separate w orkstation. Contrast used:80 mL of Isovue 300 with IV Contrast, (none if empty) Oral contrast used: without Oral Contrast (none if empty) FINDINGS: LOWER CHEST: Unremarkable ABDOMEN LIVER: Unremarkable GALLBLADDER AND BILE DUCTS: Unremarkable. PANCREAS: Unremarkable. SPLEEN: Unremarkable. ADRENAL GLANDS: Unremarkable. KIDNEYS AND URETERS: No evidence of hydronephrosis or renal calculus. The ureters are unremarkable. PELVIS BLADDER: Unremarkable REPRODUCTIVE: Unremarkable. ABDOMEN & PELVIS STOMACH AND BOWEL: No evidence of bowel obstruction. The appendix is normal. PERITONEUM/RETROPERITONEUM: No evidence of pneumoperitoneum or free fluid. VASCULATURE: No evidence of aortic aneurysm. MUSCULOSKELETAL: No acute osseous abnormalities LYMPH NODES: No gross evidence for lymphadenopathy. SOFT TISSUE/ABDOMINAL WALL: Unremarkable IMPRESSION: No evidence for acute abdominal process.
[2023-11-03] MEDS: ONDANSETRON 4 MG ODT STARTER PACK 2 TAB BTL PO STA (21:54)
[2023-11-03 22:15] LABS: Appearance,Urine Clear (Clear); Bilirubin,Urine Negative (Negative); Blood,Urine Small (Negative); Color,Urine Colorless; Glucose,Urine (UA) 4+ (Negative); Hyaline Casts,Urine 5 /lpf (0-2); Ketones,Urine 1+ (Negative); Leukocyte Esterase,Urine Negative (Negative); Mucus,Urine Rare /hpf; Nitrite,Urine Negative (Negative); Protein,Urine 2+ (Negative); RBC,Urine 1 /hpf (0-5); Specific Gravity,Urine 1.033 (1.001-1.035); Urobilinogen,Urine <2.0 mg/dL (<2.0); WBC,Urine 1 /hpf (0-5)
[2023-11-04 01:36] VITALS: BP 146/71; PULSE 80; TEMP 98.4
== END 2023-11-03 21:57 | disposition home or self-care (01) ==
LOC: EC 16:45
DX: E10.65 Type 1 diabetes mellitus with hyperglycemia (principal); E10.43 Type 1 diabetes mellitus with diabetic autonomic (poly)neuropathy; R00.1 Bradycardia, unspecified
CPT/HCPCS: 36415; 93005; 80053; 82150; 82009; 83605; 83690; 85025; 81001; 74177; 99285; 96374; 96375 ×3; 96361 ×2; J1200; J2765; J2405; J1170; S0119; Q9967

== ENCOUNTER 2024-01-25 10:29 | Inpatient (IN) | payer OTHER ==
[2024-01-25] MEDS: SODIUM CHLORIDE 0.9% 1,000 ML IV STA ×2 (11:00→11:41)
[2024-01-25] MEDS: ONDANSETRON 4 MG/2 ML VIAL IVP STA (11:00)
[2024-01-25] MEDS: MORPHINE SULFATE 4 MG/ML SYRINGE IVP STA (11:01)
[2024-01-25] MEDS: PANTOPRAZOLE 40 MG/10 ML VIAL IVP STA (11:01)
[2024-01-25] MEDS: FAMOTIDINE 20 MG/2 ML VIAL IV STA (11:06)
[2024-01-25 11:08] LABS: Basophils % (A) 0 %; Eosinophils # (A) 0.1 k/uL (0-0.7); Eosinophils % (A) 1 %; HCT 40.5 % (39.0-53.0); HGB 13.6 gm/dL (13.0-17.5); Lymphocytes # (A) 1.3 k/uL (1.0-4.8); Lymphocytes % (A) 11 %; MCH 28.9 pg (25.0-35.0); MCHC 33.5 g/dL (31.0-37.0); MCV 86.3 fL (80.0-100.0); Mean Platelet Volume 7.2; Monocytes # (A) 0.5 k/uL (0-1.0); Monocytes % (A) 4 %; Neutrophils # (A) 10.5 k/uL (1.3-7.7); Neutrophils % (A) 84 %; Platelet Count 317 k/uL (150-450); RBC 4.69 m/uL (4.30-5.90); WBC 12.4 k/uL (3.8-10.6)
--- NOTE | 2024-01-25 11:09 | ED ---
Abdominal Pain HPI - General Chief Complaint: Abdominal Pain Stated Complaint: Vomiting Time Seen by Provider: 01/25/24 10:43 Source: patient, RN notes reviewed Mode of arrival: ambulatory Limitations: no limitations - History of Present Illness Initial Comments: This is a 53-year-old male who presents to the emergency department for abdominal pain, nausea, and vomiting. States that it started yesterday. Pain is in the epigastric region. Denies any diarrhea or constipation. He has not measured any fevers or chills and denies any sick contacts. He has been told at times that he may have gastroparesis, but is unsure if he has an official diagnosis. States that he has these flareups every now and then and occasionally requires hospitalization. MD Complaint: abdominal pain - Related Data Home Medications Medication Instructions Recorded Confirmed Famotidine [Pepcid] 20 mg PO BID 09/11/14 01/25/24 Losartan Potassium [Cozaar] 100 mg PO DAILY 09/11/14 01/25/24 Sucralfate [Carafate] 1 gm PO BID 09/11/14 01/25/24 Terazosin [Hytrin] 2 mg PO HS 09/11/14 01/25/24 Hyoscyamine Sulfate [Levsin-Sl] 0.125 mg SL QID PRN 01/25/24 01/25/24 INSULIN LISPRO (For Pump) [humaLOG 0.01 units SQ-PUMP CONTINUOUS 01/25/24 01/25/24 (For Pump)] atenoloL [Tenormin] 25 mg PO HS 01/25/24 01/25/24 Previous Rx's Medication Instructions Recorded Ondansetron Odt [Zofran Odt] 4 mg PO Q8HR PRN #12 tab 05/25/18 Allergies Allergy/AdvReac Type Severity Reaction Status Date / Time No Known Allergies Allergy Verified 01/25/24 12:55 Review of Systems ROS Statement: Those systems with pertinent positive or pertinent negative responses have been documented in the HPI. ROS Other: All systems not noted in ROS Statement are negative. Past Medical History Past Medical History: Diabetes Mellitus, GERD/Reflux, Hypertension Additional Past Medical History / Comment(s): PT STATES HE FREQUENTLY VOMITS BLOOD, History of Any Multi-Drug Resistant Organisms: None Reported Additional Past Surgical History / Comment(s): colonoscopy Past Anesthesia/Blood Transfusion Reactions: No Reported Reaction Past Psychological History: Anxiety, Depression Smoking Status: Never smoker Past Alcohol Use History: Occasional Past Drug Use History: Marijuana - Past Family History Mother Family Medical History: No Reported History General Exam Limitations: no limitations General appearance: alert, in distress Head exam: Present: atraumatic, normocephalic, normal inspection Respiratory exam: Present: normal lung sounds bilaterally. Absent: respiratory distress, wheezes, rales, rhonchi, stridor Cardiovascular Exam: Present: regular rate, normal rhythm, normal heart sounds. Absent: systolic murmur, diastolic murmur, rubs, gallop, clicks GI/Abdominal exam: Present: soft, tenderness (Epigastric), normal bowel sounds. Absent: distended Neurological exam: Present: alert, oriented X3, CN II-XII intact Psychiatric exam: Present: normal affect, normal mood Skin exam: Present: warm, dry, intact, normal color. Absent: rash Course Vital Signs 01/25/24 01/25/24 01/25/24 10:38 11:40 12:30 Temperature 98 F Pulse Rate 67 81 65 Respiratory 20 16 18 Rate Blood Pressure 199/83 225/92 O2 Sat by Pulse 99 98 95 Oximetry 01/25/24 01/25/24 01/25/24 13:00 14:00 15:35 Temperature Pulse Rate 69 67 67 Respiratory 18 18 18 Rate Blood Pressure 191/95 160/76 161/78 O2 Sat by Pulse 97 97 97 Oximetry Medical Decision Making - Medical Decision Making This is a 53 year old male who presents to the emergency department for abdominal pain, nausea, and vomiting. Was pt. sent in by a medical professional or institution? @ -No Did you speak to anyone other than the patient for history? @ -No Did you review nursing and triage notes? @ -Yes, and I agree, it is accurate with regards to the patient's symptoms. Were old charts reviewed? @ -No Differential Diagnosis? @ -Differential Nausea and Vomiting: Gastroenteritis, cholecystitis, appendicitis, pancreatitis, migraine, benign positional vertigo, food borne illness, pyelonephritis, irritable bowel sy ndrome, influenza, Covid, GERD, incarcerated hernia, intestinal obstruction, this is not meant to be an all-inclusive list. EKG interpreted by me (3pts min.)? @ -EKG interpreted by me demonstrating the following: Sinus rhythm. Ventricular rate 72 bpm, UT interval 171 ms, QRS duration 104 ms, QTc 432 ms. X-rays interpreted by me (1pt min.)? @ -Not obtained CT interpreted by me (1pt min.)? @ -CT scan of the abdomen and pelvis obtained. My interpretation identifies no evidence of bowel wall thickening or free air. U/S interpreted by me (1pt. min.)? @ -Not obtained What testing was considered but not performed? (CT, X-rays, U/S, labs)? Why? @ -None What meds were considered but not given? Why? @ -None Did you discuss the management of the patient with other professionals? @ -Yes, Dr. Fishman, who accepts the patient for admission. Did you reconcile home meds? @ -Yes Was smoking cessation discussed for >3mins.? @ -No Was critical care preformed (if so, how long)? @ -No Were there social determinants of health that impacted care today? How? (Homelessness, low income, unemployed, alcoholism, drug addiction, transpor tation, low edu. Level, literacy, decrease access to med. care, residential, rehab)? @ -No Was there de-escalation of care discussed even if they declined? (Discuss DNR or withdrawal of care, Hospice)? @ -No What co-morbidities impacted this encounter? (DM, HTN, Smoking, COPD, CAD, Cancer, CVA, Hep., AIDS, mental health diagnosis, sleep apnea, morbid obesity)? @ -DM, GERD, HTN Was patient admitted / discharged? @ -Admitted. Lab work demonstrates leukocytosis with a white blood cell count of 12.4. He also has an NONI with a creatinine of 1.64 and GFR of 47. Lactic acid mildly elevated at 2.2. Acetone is negative. Urinalysis negative for signs of infection. CT scan of the abdomen and pelvis obtained revealing no acute process. Patient initially treated with IV fluids and Zofran, but continued to have ongoing nausea and vomiting. We then tried Reglan followed by Compazine, and he continued to be symptomatic. At that point patient had tried 3 nausea medications without any sustained relief and continued to vomit repetitively. Patient subsequently admitted to medicine for intractable nausea and vomiting and dehydration. Maintenance fluids initiated as well. Case discussed with ED attending, Dr. Wheeler. Undiagnosed new problem with uncertain prognosis? @ -None Drug Therapy requiring intensive monitoring for toxicity (Heparin, Nitro, Insulin, Cardizem)? @ -None Were any procedures done? @ -None Diagnosis/symptom? @ -Intractable nausea and vomiting, NONI Acute, or Chronic, or Acute on Chronic? @ -NONI Uncomplicated (without systemic symptoms) or Complicated (systemic symptoms)? @ -Complicated Side effects of treatment? @ -None Exacerbation, Progression, or Severe Exacerbation] @ -Not applicable Poses a threat to life or bodily function? @ -Yes, dehydration can become more severe leading to problematic electrolyte imbalances. - Lab Data Result diagrams: 01/25/24 10:55 01/25/24 10:55 Lab Results 01/25/24 01/25/24 01/25/24 Range/Units 10:55 10:55 10:55 WBC 12.4 H (3.8-10.6) k/uL RBC 4.69 (4.30-5.90) m/uL Hgb 13.6 (13.0-17.5) gm/dL Hct 40.5 (39.0-53.0) % MCV 86.3 (80.0-100.0) fL MCH 28.9 (25.0-35.0) pg MCHC 33.5 (31.0-37.0) g/dL RDW 13.0 (11.5-15.5) % Plt Count 317 (150-450) k/uL MPV 7.2 Neutrophils % 84 % Lymphocytes % 11 % Monocytes % 4 % Eosinophils % 1 % Basophils % 0 % Neutrophils # 10.5 H (1.3-7.7) k/uL Lymphocytes # 1.3 (1.0-4.8) k/uL Monocytes # 0.5 (0-1.0) k/uL Eosinophils # 0.1 (0-0.7) k/uL Basophils # 0.0 (0-0.2) k/uL Sodium 139 (137-145) mmol/L Potassium 4.4 (3.5-5.1) mmol/L Chloride 106 (98-107) mmol/L Carbon Dioxide 21 L (22-30) mmol/L Anion Gap 12 mmol/L BUN 24 H (9-20) mg/dL Creatinine 1.64 H (0.66-1.25) mg/dL Est GFR (CKD-EPI)AfAm 55 (>60 ml/min/1.73 sqM) Est GFR (CKD-EPI)NonAf 47 (>60 ml/min/1.73 sqM) Glucose 243 H (74-99) mg/dL Lactic Ac Sepsis Rflx Plasma Lactic Acid Christopher 2.2 H* (0.7-2.0) mmol/L Calcium 10.8 H (8.4-10.2) mg/dL Phosphorus 1.3 L (2.5-4.5) mg/dL Magnesium 1.6 (1.6-2.3) mg/dL Total Bilirubin 0.8 (0.2-1.3) mg/dL AST 22 (17-59) U/L ALT 19 (4-49) U/L Alkaline Phosphatase 77 (38-126) U/L Total Protein 7.6 (6.3-8.2) g/dL Albumin 4.9 (3.5-5.0) g/dL Amylase 56 (30-110) U/L Lipase 43 (23-300) U/L Urine Color Urine Appearance (Clear) Urine pH (5.0-8.0) Ur Specific [place] (1.001-1.035) Urine Protein (Negative) Urine Glucose (UA) (Negative) Urine Ketones (Negative) Urine Blood (Negative) Urine Nitrite (Negative) Urine Bilirubin (Negative) Urine Urobilinogen (<2.0) mg/dL Ur Leukocyte Esterase (Negative) Urine RBC (0-5) /hpf Urine WBC (0-5) /hpf Ur Squamous Epith Cells (0-4) /hpf Hyaline Casts (0-2) /lpf Urine Mucus (None) /hpf Acetone, Qual Negative (Negative) 01/25/24 01/25/24 Range/Units 11:32 12:31 WBC (3.8-10.6) k/uL RBC (4.30-5.90) m/uL Hgb (13.0-17.5) gm/dL Hct (39.0-53.0) % MCV (80.0-100.0) fL MCH (25.0-35.0) pg MCHC (31.0-37.0) g/dL RDW (11.5-15.5) % Plt Count (150-450) k/uL MPV Neutrophils % % Lymphocytes % % Monocytes % % Eosinophils % % Basophils % % Neutrophils # (1.3-7.7) k/uL Lymphocytes # (1.0-4.8) k/uL Monocytes # (0-1.0) k/uL Eosinophils # (0-0.7) k/uL Basophils # (0-0.2) k/uL Sodium (137-145) mmol/L Potassium (3.5-5.1) mmol/L Chloride (98-107) mmol/L Carbon Dioxide (22-30) mmol/L Anion Gap mmol/L BUN (9-20) mg/dL Creatinine (0.66-1.25) mg/dL Est GFR (CKD-EPI)AfAm (>60 ml/min/1.73 sqM) Est GFR (CKD-EPI)NonAf (>60 ml/min/1.73 sqM) Glucose (74-99) mg/dL Lactic Ac Sepsis Rflx Y Plasma Lactic Acid Christopher (0.7-2.0) mmol/L Calcium (8.4-10.2) mg/dL Phosphorus (2.5-4.5) mg/dL Magnesium (1.6-2.3) mg/dL Total Bilirubin (0.2-1.3) mg/dL AST (17-59) U/L ALT (4-49) U/L Alkaline Phosphatase (38-126) U/L Total Protein (6.3-8.2) g/dL Albumin (3.5-5.0) g/dL Amylase (30-110) U/L Lipase (23-300) U/L Urine Color Colorless Urine Appearance Clear (Clear) Urine pH 6.0 (5.0-8.0) Ur Specific [place] 1.014 (1.001-1.035) Urine Protein 1+ H (Negative) Urine Glucose (UA) 4+ H (Negative) Urine Ketones 1+ H (Negative) Urine Blood Negative (Negative) Urine Nitrite Negative (Negative) Urine Bilirubin Negative (Negative) Urine Urobilinogen <2.0 (<2.0) mg/dL Ur Leukocyte Esterase Negative (Negative) Urine RBC 2 (0-5) /hpf Urine WBC 1 (0-5) /hpf Ur Squamous Epith Cells <1 (0-4) /hpf Hyaline Casts 2 (0-2) /lpf Urine Mucus Rare H (None) /hpf Acetone, Qual (Negative) - Radiology Data Radiology results: report reviewed, image reviewed Disposition Clinical Impression: Intractable nausea and vomiting, NONI (acute kidney injury) Disposition: ADMITTED IP TO THIS HOSP
[2024-01-25 11:22] LABS: ALT 19 U/L (4-49); AST 22 U/L (17-59); African American GFR (CKD) 55 (>60 ml/min/1.73 sqM); Albumin 4.9 g/dL (3.5-5.0); Alkaline Phosphatase 77 U/L (38-126); Amylase 56 U/L (30-110); Anion Gap 12 mmol/L; Blood Urea Nitrogen 24 mg/dL (9-20); Calcium 10.8 mg/dL (8.4-10.2); Carbon Dioxide 21 mmol/L (22-30); Chloride 106 mmol/L (98-107); Glucose 243 mg/dL (74-99); Lipase 43 U/L (23-300); Magnesium 1.6 mg/dL (1.6-2.3); Non-African American GFR(CKD) 47 (>60 ml/min/1.73 sqM); Phosphorus 1.3 mg/dL (2.5-4.5); Potassium 4.4 mmol/L (3.5-5.1); Sodium 139 mmol/L (137-145); Total Bilirubin 0.8 mg/dL (0.2-1.3); Total Protein 7.6 g/dL (6.3-8.2)
[2024-01-25] MEDS: HYDROmorphone 0.5 MG/0.5 ML SYRINGE IVP STA (11:41)
[2024-01-25] MEDS: METOCLOPRAMIDE 5 MG/ML 2 ML VIAL IVP STA (11:42)
--- NOTE | 2024-01-25 12:15 | CT ---
EXAMINATION TYPE: CT abdomen pelvis wo con CT DLP: 597.4 mGycm, Automated exposure control for dose reduction was used. DATE OF EXAM: 01/25/2024 12:09 PM COMPARISON: CT abdomen pelvis most recent from 11/03/2023 . CLINICAL INDICATION:Male, 53 years old with history of Epigastric pain; EPIGASTRIC PAIN, VOMITING TECHNIQUE: Standard CT of the abdomen and pelvis without IV or oral contrast. Lack of IV or oral co ntrast limits evaluation of solid and hollow organ viscera. Coronal and sagittal reformats were perfo rmed. FINDINGS: LOWER CHEST: Unremarkable ABDOMEN LIVER: Unremarkable noncontrast appearance GALLBLADDER AND BILE DUCTS: Unremarkable noncontrast appearance PANCREAS: Unremarkable noncontrast appearance SPLEEN: Unremarkable noncontrast appearance ADRENAL GLANDS: Unremarkable noncontrast appearance. KIDNEYS AND URETERS: No evidence of hydronephrosis or renal calculus. Similar minimal bilateral perin ephric fat stranding. PELVIS BLADDER: Unremarkable REPRODUCTIVE: Unremarkable. ABDOMEN & PELVIS STOMACH AND BOWEL: Stomach and duodenum are unremarkable. No focal bowel wall thickening or surroundi ng inflammatory changes. The appendix is within normal limits. No evidence of bowel obstruction. PERITONEUM: No evidence of pneumoperitoneum or free fluid. VASCULATURE: Minimal atherosclerotic calcifications are present throughout the abdominal aorta and it s branches. No evidence of aortic aneurysm. A few left-sided pelvic phleboliths. MUSCULOSKELETAL: No acute osseous abnormalities LYMPH NODES: No gross evidence for lymphadenopathy. SOFT TISSUE/ABDOMINAL WALL: Unremarkable IMPRESSION: No acute abdominal/pelvic process within limitations of a noncontrast exam.
[2024-01-25] MEDS: PROCHLORPERAZINE INJ 10 MG/2 ML VIAL IVP STA (13:09)
[2024-01-25] MEDS: hydrALAZINE HCL 20 MG/ML 1 ML VIAL IVP STA (13:09)
[2024-01-25 13:12] LABS: Appearance,Urine Clear (Clear); Bilirubin,Urine Negative (Negative); Blood,Urine Negative (Negative); Color,Urine Colorless; Glucose,Urine (UA) 4+ (Negative); Hyaline Casts,Urine 2 /lpf (0-2); Ketones,Urine 1+ (Negative); Leukocyte Esterase,Urine Negative (Negative); Mucus,Urine Rare /hpf; Nitrite,Urine Negative (Negative); Protein,Urine 1+ (Negative); RBC,Urine 2 /hpf (0-5); Specific Gravity,Urine 1.014 (1.001-1.035); Squamous Epithelial Cell,Urine <1 /hpf (0-4); Urobilinogen,Urine <2.0 mg/dL (<2.0); WBC,Urine 1 /hpf (0-5)
[2024-01-25] MEDS ORDERED: NALOXONE 0.4 MG/ML 1 ML VIAL IV PRN (13:35)
[2024-01-25] MEDS ORDERED: ONDANSETRON ODT 4 MG TAB PO PRN (13:39)
[2024-01-25] MEDS: SODIUM CHLORIDE 0.9% 1,000 ML IV SCH (13:51)
[2024-01-25] MEDS: droPERidol 5 MG/2 ML VIAL IVP ONE (13:53)
[2024-01-25] MEDS: HYDROmorphone 1 MG/ML 1 ML SYRINGE IVP STA (13:56)
[2024-01-25] MEDS: INSULIN LISPRO (For Pump) 100 UNIT/ML VIAL SQ-PUMP SCH (14:22)
[2024-01-25] MEDS: LABETALOL 5 MG/ML VIAL MDV IVP STA (14:26)
[2024-01-25] MEDS: HYDROmorphone 1 MG/ML 1 ML SYRINGE IVP PRN (16:17)
[2024-01-25] MEDS: METOCLOPRAMIDE 5 MG/ML 2 ML VIAL IVP PRN (20:39)
--- NOTE | 2024-01-25 21:42 | P.HPIM ---
History of Present Illness H&P Date: 01/25/24 Chief Complaint: Nausea and vomiting Patient is a 53-year-old male with a past medical history of hypertension, diabetes type 2 on insulin pump, GERD, anxiety/depression and marijuana use and recently started drinking liquor again presents to ER with complaints of nausea and vomiting and abdominal pain. Patient has been having intractable nausea and vomiting started yesterday. Was also having epigastric pain. Otherwise denied any fever or chills. Did have diarrhea this morning. No recent travel or sick contacts 24 patient. Patient states that he was having gastroparesis and has seen gastroenterology previously. No recent follow-up. Patient states that he has similar admission with nausea and vomiting previously. CT of the abdomen pelvis showed no acute abdominal/pelvic process within limitations of a noncontrast exam. EKG showed sinus rhythm. Laboratory data showed WBC 12.4 hemoglobin 13.6 and platelets 317 Sodium 139 potassium 4.4 chloride 106 bicarb is 21 BUN 24 and creatinine 1.64 and blood sugar 243 and lactic acid 2.2 calcium 10.8 phosphorus 1.3 and magnesium 1.6 Liver enzymes are not elevated amylase lipase within normal limits urinalysis showed 4+ glucose 1+ ketones and serum acetone negative. Patient has prior history of EGD in 2019 with no active GI bleed. Review of Systems Constitutional: Patient denies any fever or chills . No generalized weakness or weight loss. Abdomen: Patient does have nausea vomiting and epigastric abdominal pain. No diarrhea. Cardiovascular: Patient denies any chest pain or short of breath no palpitations. Respiratory: patient denied any cough or sputum production. No shortness of breath Neurologic: Patient denied any numbness or tingling. no headache. Musculoskeletal: Patient denies any complaints of joint swelling or deformity. Skin: Negative Psychiatric: Negative Endocrine: No heat or cold intolerance. No recent weight gain. Genitourinary: No dysuria or hematuria. All other 14 point ROS negative except the above Past Medical History Past Medical History: Diabetes Mellitus, GERD/Reflux, Hypertension Additional Past Medical History / Comment(s): PT STATES HE FREQUENTLY VOMITS BLOOD, History of Any Multi-Drug Resistant Organisms: None Reported Additional Past Surgical History / Comment(s): colonoscopy Past Anesthesia/Blood Transfusion Reactions: No Reported Reaction Past Psychological History: Anxiety, Depression Smoking Status: Never smoker Past Alcohol Use History: Occasional Additional Past Alcohol Use History / Comment(s): quit smoking 2004,smoked approx 20 yrs Past Drug Use History: Marijuana Additional Drug Use History / Comment(s): marijuana a few times a day, 05/21/18 last drink 05/21/18 states one liquior drink a day. recently started drinking again. - Past Family History Mother Family Medical History: No Reported History Medications and Allergies Home Medications Medication Instructions Recorded Confirmed Type Famotidine [Pepcid] 20 mg PO BID 09/11/14 01/25/24 History Losartan Potassium [Cozaar] 100 mg PO DAILY 09/11/14 01/25/24 History Sucralfate [Carafate] 1 gm PO BID 09/11/14 01/25/24 History Terazosin [Hytrin] 2 mg PO HS 09/11/14 01/25/24 History Ondansetron Odt [Zofran Odt] 4 mg PO Q8HR PRN #12 tab 05/25/18 01/25/24 Rx Hyoscyamine Sulfate [Levsin-Sl] 0.125 mg SL QID PRN 01/25/24 01/25/24 History INSULIN LISPRO (For Pump) [humaLOG 0.01 units SQ-PUMP CONTINUOUS 01/25/24 01/25/24 History (For Pump)] atenoloL [Tenormin] 25 mg PO HS 01/25/24 01/25/24 History Allergies Allergy/AdvReac Type Severity Reaction Status Date / Time No Known Allergies Allergy Verified 01/25/24 12:55 Physical Exam Vitals: Vital Signs Temp Pulse Pulse Resp BP BP Pulse Ox 01/25/24 19:23 97.0 F L 84 18 174/83 99 01/25/24 15:35 67 18 161/78 97 01/25/24 14:00 67 18 160/76 97 01/25/24 13:00 69 18 191/95 97 01/25/24 12:30 65 18 225/92 95 01/25/24 11:40 81 16 98 01/25/24 10:38 98 F 67 20 199/83 99 Intake and Output 01/25/24 01/25/24 01/25/24 06:59 14:59 22:59 Other: Weight 86.183 kg 86.183 kg PHYSICAL EXAMINATION: Patient is lying in the bed comfortably, no acute distress, awake alert and oriented.. HEENT: Normocephalic. Neck is supple. Pupils reactive. Nostrils clear. Oral cavity is moist. Neck reveals no JVD, carotid bruits, or thyromegaly. CHEST EXAMINATION: Trachea is central. Symmetrical expansion. Lung camp clear to auscultation and percussion. CARDIAC: Normal S1, S2 with no gallops. No murmurs ABDOMEN: Soft. Bowel sounds present. Mild epigastric tenderness. No guarding or rigidity.. No organomegaly. No abdominal bruits. Extremities: reveal no edema. No clubbing or cyanosis Neurologically awake, alert, oriented x3 with well-coordinated movements. No focal deficits noted Skin: No rash or skin lesions. Psychiatric: Coperative. Nonsuicidal, anxious. Musculoskeletal: No joint swelling or deformity. Normal range of motion. Results CBC & Chem 7: 01/25/24 10:55 01/25/24 10:55 Labs: Abnormal Lab Results - Last 24 Hours (Table) 01/25/24 01/25/24 01/25/24 Range/Units 10:55 10:55 10:55 WBC 12.4 H (3.8-10.6) k/uL Neutrophils # 10.5 H (1.3-7.7) k/uL Carbon Dioxide 21 L (22-30) mmol/L BUN 24 H (9-20) mg/dL Creatinine 1.64 H (0.66-1.25) mg/dL Glucose 243 H (74-99) mg/dL Plasma Lactic Acid Christopher 2.2 H* (0.7-2.0) mmol/L Calcium 10.8 H (8.4-10.2) mg/dL Phosphorus 1.3 L (2.5-4.5) mg/dL Urine Protein (Negative) Urine Glucose (UA) (Negative) Urine Ketones (Negative) Urine Mucus (None) /hpf 01/25/24 Range/Units 12:31 WBC (3.8-10.6) k/uL Neutrophils # (1.3-7.7) k/uL Carbon Dioxide (22-30) mmol/L BUN (9-20) mg/dL Creatinine (0.66-1.25) mg/dL Glucose (74-99) mg/dL Plasma Lactic Acid Christopher (0.7-2.0) mmol/L Calcium (8.4-10.2) mg/dL Phosphorus (2.5-4.5) mg/dL Urine Protein 1+ H (Negative) Urine Glucose (UA) 4+ H (Negative) Urine Ketones 1+ H (Negative) Urine Mucus Rare H (None) /hpf Thrombosis Risk Factor Assmnt - DVT/VTE Prophylaxis DVT/VTE Prophylaxis: Pharmacologic Prophylaxis ordered - Choose All That Apply Any of the Below Risk Factors Present?: Yes Each Factor Represents 1 point: Age 41-60 years Other Risk Factors: No Other congenital or acquired thrombophilia - If yes, enter type in comment: No Thrombosis Risk Factor Assessment Total Risk Factor Score: 1 Thrombosis Risk Factor Assessment Level: Low Risk Assessment and Plan Assessment: Intractable nausea vomiting and abdominal pain. Lactic acidosis due to tissue hypoperfusion Hypomagnesemia and hypophosphatemia Possible alcoholic gastritis versus cyclic vomiting due to marijuana use. History of gastroparesis Marijuana use disorder Daily alcohol use Diabetes type 2 on insulin pump with hyperglycemia GERD Anxiety/depression History of nicotine dependence DVT prophylaxis with heparin subcu Plan: Patient will be continued on IV hydration with normal saline. Current with IV pain medications and Protonix IV daily. Symptomatic management for nausea and vomiting with Zofran and Reglan. Continue with insulin pump and sliding scale with Accu-Cheks. Patient has been counseled extensively for marijuana and alcohol abstinence. Follow-up closely. Time with Patient: Greater than 30
[2024-01-25] MEDS: atenoloL 25 MG TAB PO SCH (21:53)
[2024-01-25] MEDS: SUCRALFATE 1 GM TAB PO SCH (21:53)
[2024-01-25] MEDS: FAMOTIDINE 20 MG TAB PO SCH (21:53)
[2024-01-25] MEDS ORDERED: DEXTROSE 50% SYRINGE 50 ML IVP PRN ×2 (22:29)
[2024-01-25] MEDS: DOXAZOSIN 2 MG TAB PO SCH (22:44)
[2024-01-25] MEDS: POTAS-SOD-PHOS 278-164-250 MG 1 EACH PACKET PO SCH (22:44)
[2024-01-25] MEDS: HEPARIN SODIUM,PORCINE 5,000 UNIT/ML 1 ML VIAL SQ SCH (22:44)
[2024-01-26] MEDS: ONDANSETRON 4 MG/2 ML VIAL IVP PRN (00:40)
[2024-01-26] MEDS: MAGNESIUM SULFATE-D5W PMX 1 GM in DEXTROSE/WATER 1 100ML.BAG IVPB ONE (00:40)
[2024-01-26] MEDS: hydrALAZINE HCL 20 MG/ML 1 ML VIAL IVP PRN (01:33)
[2024-01-26] MEDS: INSULIN ASPART (NovoLOG) 100 UNIT/ML VIAL SQ SCH (06:33)
[2024-01-26 08:06] LABS: Basophils % (A) 0 %; Eosinophils % (A) 0 %; HCT 35.8 % (39.0-53.0); HGB 11.6 gm/dL (13.0-17.5); Lymphocytes % (A) 9 %; MCH 28.7 pg (25.0-35.0); MCHC 32.3 g/dL (31.0-37.0); MCV 88.9 fL (80.0-100.0); Mean Platelet Volume 7.2; Monocytes # (A) 0.8 k/uL (0-1.0); Monocytes % (A) 7 %; Neutrophils # (A) 10.2 k/uL (1.3-7.7); Neutrophils % (A) 84 %; Platelet Count 293 k/uL (150-450); RBC 4.03 m/uL (4.30-5.90); RDW 12.9 % (11.5-15.5); WBC 12.2 k/uL (3.8-10.6)
[2024-01-26 08:24] LABS: African American GFR (CKD) 80 (>60 ml/min/1.73 sqM); Anion Gap 8 mmol/L; Blood Urea Nitrogen 22 mg/dL (9-20); Calcium 9.6 mg/dL (8.4-10.2); Carbon Dioxide 23 mmol/L (22-30); Chloride 111 mmol/L (98-107); Glucose 199 mg/dL (74-99); Magnesium 1.8 mg/dL (1.6-2.3); Non-African American GFR(CKD) 69 (>60 ml/min/1.73 sqM); Phosphorus 2.5 mg/dL (2.5-4.5); Potassium 3.8 mmol/L (3.5-5.1); Sodium 142 mmol/L (137-145)
[2024-01-26] MEDS: PANTOPRAZOLE 40 MG/10 ML VIAL IV SCH ×2 (09:17→19:32)
[2024-01-26] MEDS: THIAMINE 100 MG TAB PO SCH (09:18)
[2024-01-26] MEDS: LOSARTAN 50 MG TAB PO SCH (09:18)
--- NOTE | 2024-01-26 11:04 | P.PN ---
Subjective Patient is a 53-year-old male with a past medical history of hypertension, diabetes type 2 on insulin pump, GERD, anxiety/depression and marijuana use and recently started drinking liquor again presents to ER with complaints of nausea and vomiting and abdominal pain. Patient has been having intractable nausea and vomiting started yesterday. Was also having epigastric pain. Otherwise denied any fever or chills. Did have diarrhea this morning. No recent travel or sick contacts 24 patient. Patient states that he was having gastroparesis and has seen gastroenterology previously. No recent follow-up. Patient states that he has similar admission with nausea and vomiting previously. CT of the abdomen pelvis showed no acute abdominal/pelvic process within limitations of a noncontrast exam. EKG showed sinus rhythm. Laboratory data showed WBC 12.4 hemoglobin 13.6 and platelets 317 Sodium 139 potassium 4.4 chloride 106 bicarb is 21 BUN 24 and creatinine 1.64 and blood sugar 243 and lactic acid 2.2 calcium 10.8 phosphorus 1.3 and magnesi um 1.6 Liver enzymes are not elevated amylase lipase within normal limits urinalysis showed 4+ glucose 1+ ketones and serum acetone negative. Patient has prior history of EGD in 2019 with no active GI bleed. 01/25 He still has nausea vomiting today, he threw up 3 times after trying some apple juice. Currently on liquid diet and he cannot tolerate that However no upper abdominal pain. No diarrhea. No other complaint Patient says that he has similar problem about 2 months ago and resolved in 1 d ay with symptomatic treatment. He has multiple similar episodes but the last time before this was about 5 years ago It looks like he takes Zofran with partial improvement. Patient denies smoking or illicit drugs. Other than marijuana which he uses daily and patient was counseled to quit. Patient denies drinking alcohol, he states the last time he drank alcohol was about 2 years ago Creatinine improved down to 1.2 Still has mildly elevated white cell count 12.4 Review of systems CONSTITUTIONAL: No fever, no malaise, no fatigue. HEENT: No recent visual problems or hearing problems. Denied any sore throat. CARDIOVASCULAR: No orthopnea, PND, no palpitations, no syncope. PULMONARY: No shortness of breath, no cough, no hemoptysis. HEMATOLOGICAL: Denies any bleeding or petechiae. GENITOURINARY: Denies any burning micturition, frequency, or urgency. MUSCULOSKELETAL/RHEUMATOLOGICAL: Denies any joint pain, swelling, or any muscle pain. ENDOCRINE: Denies any polyuria or polydipsia. Active Medications Generic Name Dose Route Start Last Admin Trade Name Freq PRN Reason Stop Dose Admin Hydrocodone Bitart/Acetaminophen 1 each 01/25/24 13:35 Hydrocodone/Apap 5-325mg 1 Each Tab PO Q4HR PRN Moderate Pain (Scale 4 to 6) Atenolol 25 mg 01/25/24 21:00 01/25/24 21:53 Atenolol 25 Mg Tab PO 25 mg HS ARIEL Administration Dextrose/Water 25 ml 01/25/24 22:29 Dextrose 50% Syringe 50 Ml IVP PER PROTOCOL PRN Hypoglycemia Protocol Dextrose/Water 50 ml 01/25/24 22:29 Dextrose 50% Syringe 50 Ml IVP PER PROTOCOL PRN Hypoglycemia Protocol Doxazosin Mesylate 2 mg 01/25/24 21:00 01/25/24 22:44 Doxazosin 2 Mg Tab PO Not Given HS ARIEL Famotidine 20 mg 01/25/24 21:00 01/26/24 09:18 Famotidine 20 Mg Tab PO Not Given BID ARIEL Heparin Sodium (Porcine) 5,000 unit 01/26/24 00:00 01/26/24 09:17 Heparin Sodium,Porcine 5,000 Unit/Ml 1 Ml Vial SQ 5,000 unit Q8HR ARIEL Administration Hydralazine HCl 10 mg 01/26/24 01:23 01/26/24 01:33 Hydralazine Hcl 20 Mg/Ml 1 Ml Vial IVP 10 mg Q6HR PRN Administration Blood Pressure - High Hydromorphone HCl 1 mg 01/25/24 13:35 01/26/24 09:23 Hydromorphone 1 Mg/Ml 1 Ml Syringe IVP 1 mg Q3HR PRN Administration Severe Pain (Scale 7 to 10) Hyoscyamine 0.125 mg 01/25/24 13:39 Hyoscyamine Sulfate 0.125 Mg Tab SL QID PRN GI Upset Sodium Chloride 1,000 mls @ 100 mls/hr 01/25/24 13:45 01/26/24 05:58 Saline 0.9% IV 100 mls/hr .Q10H ARIEL Administration Insulin Aspart 0 unit 01/26/24 07:30 01/26/24 06:33 Insulin Aspart (Novolog) 100 Unit/Ml Vial SQ Not Given ACHS [facility] Protocol Insulin Human Lispro 0.01 unit 01/25/24 13:45 01/25/24 14:22 Insulin Lispro (For Pump) 100 Unit/Ml Vial SQ-PUMP 0.01 unit CONTINUOUS ARIEL Administration Ketorolac Tromethamine 15 mg 01/25/24 13:35 Ketorolac 15 Mg/Ml 1 Ml Vial IVP 01/28/24 13:37 Q6HR PRN Moderate Pain (Scale 4 to 6) Losartan Potassium 100 mg 01/26/24 09:00 01/26/24 09:18 Losartan 50 Mg Tab PO Not Given DAILY ARIEL Metoclopramide HCl 10 mg 01/25/24 13:37 01/26/24 05:20 Metoclopramide 5 Mg/Ml 2 Ml Vial IVP 10 mg Q6H PRN Administration Nausea And Vomiting Naloxone HCl 0.2 mg 01/25/24 13:35 Naloxone 0.4 Mg/Ml 1 Ml Vial IV Q2M PRN Opioid Reversal Ondansetron HCl 4 mg 01/25/24 13:35 01/26/24 00:40 Ondansetron 4 Mg/2 Ml Vial IVP 4 mg Q8HR PRN Administration Nausea And Vomiting Ondansetron HCl 4 mg 01/25/24 13:39 Ondansetron Odt 4 Mg Tab PO Q8HR PRN Nausea Pantoprazole Sodium 40 mg 01/26/24 09:00 01/26/24 09:17 Pantoprazole 40 Mg/10 Ml Vial IV 40 mg DAILY ARIEL Administration Potassium Phos/Sodium Phos 1 each 01/25/24 22:00 01/26/24 09:18 [id number]-[id number] [id number] Mg 1 Each Packet PO 01/26/24 21:59 Not Given TID [facility] Sucralfate 1 gm 01/25/24 21:00 01/26/24 09:18 Sucralfate 1 Gm Tab PO Not Given BID [facility] Thiamine HCl 100 mg 01/26/24 09:00 01/26/24 09:18 Thiamine 100 Mg Tab PO Not Given DAILY [facility] Objective - Vital Signs Vital signs: Vital Signs Temp 98.6 F 01/26/24 07:00 Pulse 94 01/26/24 07:00 Resp 17 01/26/24 07:00 BP 164/82 01/26/24 07:00 Pulse Ox 98 01/26/24 07:00 FiO2 Intake & Output 01/25/24 01/26/24 01/26/24 18:59 06:59 18:59 Output Total 450 Balance -450 Weight 86.183 kg Output: Emesis 450 Other: Voiding Method Toilet # Voids 3 - Exam GENERAL: The patient is alert and oriented x3, not in any acute distress. Well developed, well nourished. HEENT: Pupils are round and equally reacting to light. EOMI. No scleral icterus. No conjunctival pallor. Normocephalic, atraumatic. No pharyngeal erythema. No thyromegaly. CARDIOVASCULAR: S1 and S2 present. No murmurs, rubs, or gallops. PULMONARY: Chest is clear to auscultation, no wheezing , no crackles. ABDOMEN: Soft, nontender, nondistended, normoactive bowel sounds. No palpable organomegaly. MUSCULOSKELETAL: No joint swelling or deformity. EXTREMITIES: No cyanosis, clubbing, or pedal edema. NEUROLOGICAL: Gross neurological examination did not reveal any focal deficits. SKIN: No rashes. no petechiae. - Labs CBC & Chem 7: 01/26/24 07:46 01/26/24 07:46 Labs: Abnormal Lab Results - Last 24 Hours (Table) 01/25/24 01/25/24 01/25/24 Range/Units 10:55 10:55 10:55 WBC 12.4 H (3.8-10.6) k/uL RBC (4.30-5.90) m/uL Hgb (13.0-17.5) gm/dL Hct (39.0-53.0) % Neutrophils # 10.5 H (1.3-7.7) k/uL Chloride (98-107) mmol/L Carbon Dioxide 21 L (22-30) mmol/L BUN 24 H (9-20) mg/dL Creatinine 1.64 H (0.66-1.25) mg/dL Glucose 243 H (74-99) mg/dL Hemoglobin A1c (<=6.0) % Plasma Lactic Acid Christopher 2.2 H* (0.7-2.0) mmol/L Calcium 10.8 H (8.4-10.2) mg/dL Phosphorus 1.3 L (2.5-4.5) mg/dL Urine Protein (Negative) Urine Glucose (UA) (Negative) Urine Ketones (Negative) Urine Mucus (None) /hpf 01/25/24 01/26/24 01/26/24 Range/Units 12:31 07:46 07:46 WBC 12.2 H (3.8-10.6) k/uL RBC 4.03 L (4.30-5.90) m/uL Hgb 11.6 L (13.0-17.5) gm/dL Hct 35.8 L (39.0-53.0) % Neutrophils # 10.2 H (1.3-7.7) k/uL Chloride 111 H (98-107) mmol/L Carbon Dioxide (22-30) mmol/L BUN 22 H (9-20) mg/dL Creatinine (0.66-1.25) mg/dL Glucose 199 H (74-99) mg/dL Hemoglobin A1c (<=6.0) % Plasma Lactic Acid Christopher (0.7-2.0) mmol/L Calcium (8.4-10.2) mg/dL Phosphorus (2.5-4.5) mg/dL Urine Protein 1+ H (Negative) Urine Glucose (UA) 4+ H (Negative) Urine Ketones 1+ H (Negative) Urine Mucus Rare H (None) /hpf 01/26/24 Range/Units 07:46 WBC (3.8-10.6) k/uL RBC (4.30-5.90) m/uL Hgb (13.0-17.5) gm/dL Hct (39.0-53.0) % Neutrophils # (1.3-7.7) k/uL Chloride (98-107) mmol/L Carbon Dioxide (22-30) mmol/L BUN (9-20) mg/dL Creatinine (0.66-1.25) mg/dL Glucose (74-99) mg/dL Hemoglobin A1c 8.7 H (<=6.0) % Plasma Lactic Acid Christopher (0.7-2.0) mmol/L Calcium (8.4-10.2) mg/dL Phosphorus (2.5-4.5) mg/dL Urine Protein (Negative) Urine Glucose (UA) (Negative) Urine Ketones (Negative) Urine Mucus (None) /hpf Assessment and Plan Assessment: Intractable nausea vomiting and abdominal pain. Could be secondary to marijuana, rule out other GI causes Lactic acidosis due to tissue hypoperfusion. Resolved Hypomagnesemia and hypophosphatemia. Improved Possible cyclic vomiting due to marijuana use. History of gastroparesis Marijuana use disorder Daily alcohol use Diabetes type 2 on insulin pump with hyperglycemia GERD Anxiety/depression History of nicotine dependence Plan: Continue with normal saline 100 mL/h Continue with Carafate, Pepcid which are home doses. Protonix added in emergency room Continue with Zofran as needed, we will add Phenergan as needed Continue with liquid diet Continue with IV hydralazine for control of blood pressure GI consult (or surgical team consult if no GI coverage this week in this facility) GI prophylaxis: Protonix and Pepcid and Carafate DVT prophylaxis: Subcutaneous heparin Prognosis guarded
--- NOTE | 2024-01-26 15:12 | P.CONS ---
History of Present Illness - Reason for Consult Consult date: 01/26/24 Intractable nausea and vomiting Requesting physician: Ant E Sheet - Chief Complaint Nausea and vomiting - History of Present Illness This is a pleasant 53-year-old male who presented to the emergency department with intractable nausea and vomiting over the last 3 days. He has a past medical history of nausea and vomiting, diabetes mellitus, hypertension, GERD, alcohol abuse, and marijuana use. He states that he has upper abdominal pain as well. He has had previous hospitalizations for this in the past and has a history of alcohol abuse. Recently started drinking again about a pint a day also uses regular marijuana use. Last upper endoscopy was in [address] Norton that showed gastritis, biopsy showed mild chronic gastritis. CT abdomen pelvis without any acute findings. Mild leukocytosis, LFTs normal. Review of Systems REVIEW OF SYSTEMS: CARDIOPULMONARY: No chest pain or shortness of breath. Gastrointestinal: Abdominal pain. Intractable nausea and vomiting. No hematemesis, coffee-ground emesis. No rectal bleeding, or melena. GENITOURINARY: No dysuria or hematuria. MUSCULOSKELETAL: Reports normal range of motion. SKIN: No rashes. No jaundice. ENDOCRINE: No chills, fevers. No excessive weight gain or loss. No polydipsia or polyuria. PSYCHIATRIC: Unremarkable. Alcohol use disorder. NEUROLOGY: No change in mental status. Denies dizziness, headache. ENT: Vision unremarkable. CONSTITUTIONAL: No recent weight loss. No fever, chills, night sweats. Past Medical History Past Medical History: Diabetes Mellitus, GERD/Reflux, Hypertension Additional Past Medical History / Comment(s): PT STATES HE FREQUENTLY VOMITS BLOOD, History of Any Multi-Drug Resistant Organisms: None Reported Additional Past Surgical History / Comment(s): colonoscopy Past Anesthesia/Blood Transfusion Reactions: No Reported Reaction Past Psychological History: Anxiety, Depression Smoking Status: Never smoker Past Alcohol Use History: Occasional Additional Past Alcohol Use History / Comment(s): quit smoking 2004,smoked approx 20 yrs Past Drug Use History: Marijuana Additional Drug Use History / Comment(s): marijuana a few times a day, 05/21/18 last drink 05/21/18 states one liquior drink a day. recently started drinking again. - Past Family History Mother Family Medical History: No Reported History Medications and Allergies Home Medications Medication Instructions Recorded Confirmed Type Famotidine [Pepcid] 20 mg PO BID 09/11/14 01/25/24 History Losartan Potassium [Cozaar] 100 mg PO DAILY 09/11/14 01/25/24 History Sucralfate [Carafate] 1 gm PO BID 09/11/14 01/25/24 History Terazosin [Hytrin] 2 mg PO HS 09/11/14 01/25/24 History Ondansetron Odt [Zofran Odt] 4 mg PO Q8HR PRN #12 tab 05/25/18 01/25/24 Rx Hyoscyamine Sulfate [Levsin-Sl] 0.125 mg SL QID PRN 01/25/24 01/25/24 History INSULIN LISPRO (For Pump) [humaLOG 0.01 units SQ-PUMP CONTINUOUS 01/25/24 01/25/24 History (For Pump)] atenoloL [Tenormin] 25 mg PO HS 01/25/24 01/25/24 History Allergies Allergy/AdvReac Type Severity Reaction Status Date / Time No Known Allergies Allergy Verified 01/25/24 12:55 Physical Exam Vitals: Vital Signs Temp Pulse Pulse Resp BP BP Pulse Ox 01/26/24 08:00 94 17 01/26/24 07:00 98.6 F 94 17 164/82 98 01/26/24 05:54 98 164/70 01/26/24 00:56 98.0 F 92 16 190/84 98 01/25/24 19:23 97.0 F L 84 18 174/83 99 01/25/24 15:35 67 18 161/78 97 01/25/24 14:00 67 18 160/76 97 Intake and Output 01/25/24 01/26/24 01/26/24 22:59 06:59 14:59 Output Total 75 375 Balance -75 -375 Output: Emesis 75 375 Other: Voiding Method Toilet Toilet Toilet # Voids 3 Weight 86.183 kg General appearance: The patient is alert, oriented, appears in no acute distress. HET: Head is normocephalic and atraumatic. Conjunctiva pink. Sclera anicteric. Neck: Supple without lymphadenopathy. Trachea midline. Heart: Regular. Lungs: Equal expansion, normal respiratory effort. Abdomen: Soft, upper abdominal tenderness, nondistended. Skin: No rashes. No jaundice. Extremities: Normal skin color and turgor. No pedal edema. Neurological: No focal deficits. Alert and oriented x3. Results CBC & Chem 7: 01/26/24 07:46 01/26/24 07:46 Labs: Abnormal Lab Results - Last 24 Hours (Table) 01/26/24 01/26/24 01/26/24 Range/Units 07:46 07:46 07:46 WBC 12.2 H (3.8-10.6) k/uL RBC 4.03 L (4.30-5.90) m/uL Hgb 11.6 L (13.0-17.5) gm/dL Hct 35.8 L (39.0-53.0) % Neutrophils # 10.2 H (1.3-7.7) k/uL Chloride 111 H (98-107) mmol/L BUN 22 H (9-20) mg/dL Glucose 199 H (74-99) mg/dL Hemoglobin A1c 8.7 H (<=6.0) % Comments: CT abdomen pelvis without contrast no acute abdominal pelvic process within limitations of noncontrast exam Assessment and Plan (1) Intractable nausea and vomiting Narrative/Plan: 53-year-old male with previous history nausea and vomiting usually associated with alcoholic gastritis and has undergone previous scopes in the past. Last 1 being in 2019 with findings of antral gastritis. Patient started drinking again he is drinking about a pint a day also history of marijuana use. He is diabetic there is possible component of gastroparesis however likely dealing mo re with a alcohol gastritis. Continue to treat symptomatically. No plans on endoscopic evaluation. Diet as tolerated. Current Visit: Yes Status: Acute Code(s): R11.2 - NAUSEA WITH VOMITING, UNSPECIFIED SNOMED Code(s): 481738508 (2) ETOH abuse Current Visit: Yes Status: Acute Code(s): F10.10 - ALCOHOL ABUSE, UNCOMPLICATED SNOMED Code(s): 69087196 (3) Marijuana use Current Visit: Yes Status: Acute Code(s): F12.90 - CANNABIS USE, UNSPECIFIED, UNCOMPLICATED SNOMED Code(s): 728578735 (4) Diabetes mellitus Current Visit: Yes Status: Acute Code(s): E11.9 - TYPE 2 DIABETES MELLITUS WITHOUT COMPLICATIONS SNOMED Code(s): 87207872 Plan: 1. Continue symptomatic supportive care 2. Continue antiemetics 3. Increase Protonix to 40 mg twice daily and discontinue Pepcid 4. Continue with Reglan and Zofran 5. Monitor for alcohol withdrawal symptoms, recommend CIWA protocol 6. Recommend alcohol abstinence 7. Diet as tolerated 8. No plans on endoscopic evaluation at this time Thank you for this consultation, we will continue to follow. Dr. Diogenes Fink I agree with the dictator's note, documented as a scribe by Bea Mazariegos.
[2024-01-26] MEDS: HYOSCYAMINE SULFATE 0.125 MG TAB SL PRN (21:08)
[2024-01-26] MEDS: KETOROLAC 15 MG/ML 1 ML VIAL IVP PRN (23:08)
[2024-01-27 07:09] LABS: Basophils % (A) 0 %; Eosinophils # (A) 0.1 k/uL (0-0.7); Eosinophils % (A) 0 %; HGB 11.4 gm/dL (13.0-17.5); Lymphocytes # (A) 1.4 k/uL (1.0-4.8); Lymphocytes % (A) 10 %; MCH 29.7 pg (25.0-35.0); MCHC 34.5 g/dL (31.0-37.0); MCV 86.1 fL (80.0-100.0); Mean Platelet Volume 7.5; Monocytes # (A) 0.8 k/uL (0-1.0); Monocytes % (A) 6 %; Neutrophils # (A) 10.9 k/uL (1.3-7.7); Neutrophils % (A) 83 %; Platelet Count 278 k/uL (150-450); RBC 3.83 m/uL (4.30-5.90); RDW 13.3 % (11.5-15.5); WBC 13.2 k/uL (3.8-10.6)
[2024-01-27 07:27] LABS: African American GFR (CKD) 78 (>60 ml/min/1.73 sqM); Anion Gap 9 mmol/L; Blood Urea Nitrogen 23 mg/dL (9-20); Carbon Dioxide 24 mmol/L (22-30); Chloride 113 mmol/L (98-107); Glucose 113 mg/dL (74-99); Non-African American GFR(CKD) 67 (>60 ml/min/1.73 sqM); Potassium 3.7 mmol/L (3.5-5.1); Sodium 146 mmol/L (137-145)
[2024-01-27 07:46] LABS: Calcium 9.5 mg/dL (8.4-10.2)
[2024-01-27] MEDS: TRIMETHOBENZAMIDE 100 MG/ML 2 ML VIAL IM PRN (10:09)
[2024-01-27] MEDS: SCOPOLAMINE 1 MG/72 HR PATCH TRANSDERM SCH (10:19)
--- NOTE | 2024-01-27 11:27 | P.PN ---
Subjective Patient is a 53-year-old male with a past medical history of hypertension, diabetes type 2 on insulin pump, GERD, anxiety/depression and marijuana use and recently started drinking liquor again presents to ER with complaints of nausea and vomiting and abdominal pain. Patient has been having intractable nausea and vomiting started yesterday. Was also having epigastric pain. Otherwise denied any fever or chills. Did have diarrhea this morning. No recent travel or sick contacts 24 patient. Patient states that he was having gastroparesis and has seen gastroenterology previously. No recent follow-up. Patient states that he has similar admission with nausea and vomiting previously. CT of the abdomen pelvis showed no acute abdominal/pelvic process within limitations of a noncontrast exam. EKG showed sinus rhythm. Laboratory data showed WBC 12.4 hemoglobin 13.6 and platelets 317 Sodium 139 potassium 4.4 chloride 106 bicarb is 21 BUN 24 and creatinine 1.64 and blood sugar 243 and lactic acid 2.2 calcium 10.8 phosphorus 1.3 and magnesi um 1.6 Liver enzymes are not elevated amylase lipase within normal limits urinalysis showed 4+ glucose 1+ ketones and serum acetone negative. Patient has prior history of EGD in 2019 with no active GI bleed. 01/25 He still has nausea vomiting today, he threw up 3 times after trying some apple juice. Currently on liquid diet and he cannot tolerate that However no upper abdominal pain. No diarrhea. No other complaint Patient says that he has similar problem about 2 months ago and resolved in 1 d ay with symptomatic treatment. He has multiple similar episodes but the last time before this was about 5 years ago It looks like he takes Zofran with partial improvement. Patient denies smoking or illicit drugs. Other than marijuana which he uses daily and patient was counseled to quit. Patient denies drinking alcohol, he states the last time he drank alcohol was about 2 years ago Creatinine improved down to 1.2 Still has mildly elevated white cell count 12.4 01/26 Patient continued to have intractable nausea vomiting and epigastric discomfort and mild tenderness most likely related to his recurrent gastritis which might be contributed by his cyclic marijuana use. He had CT of the abdomen on admission which was unremarkable for acute process Patient is unable to tolerate diet He is afebrile I discussed the case with GI service Will keep him on a Protonix twice daily. Tigan added by GI team. If no improvement by tomorrow he may require endoscopy/EGD Review of systems CONSTITUTIONAL: No fever, no malaise, no fatigue. HEENT: No recent visual problems or hearing problems. Denied any sore throat. CARDIOVASCULAR: No orthopnea, PND, no palpitations, no syncope. HEMATOLOGICAL: Denies any bleeding or petechiae. GENITOURINARY: Denies any burning micturition, frequency, or urgency. MUSCULOSKELETAL/RHEUMATOLOGICAL: Denies any joint pain, swelling, or any muscle pain. ENDOCRINE: Denies any polyuria or polydipsia. Active Medications Generic Name Dose Route Start Last Admin Trade Name Freq PRN Reason Stop Dose Admin Hydrocodone Bitart/Acetaminophen 1 each 01/25/24 13:35 Hydrocodone/Apap 5-325mg 1 Each Tab PO Q4HR PRN Moderate Pain (Scale 4 to 6) Atenolol 25 mg 01/25/24 21:00 01/26/24 21:21 Atenolol 25 Mg Tab PO 25 mg HS ARIEL Administration Dextrose/Water 25 ml 01/25/24 22:29 Dextrose 50% Syringe 50 Ml IVP PER PROTOCOL PRN Hypoglycemia Protocol Dextrose/Water 50 ml 01/25/24 22:29 Dextrose 50% Syringe 50 Ml IVP PER PROTOCOL PRN Hypoglycemia Protocol Doxazosin Mesylate 2 mg 01/25/24 21:00 01/26/24 21:21 Doxazosin 2 Mg Tab PO 2 mg HS ARIEL Administration Heparin Sodium (Porcine) 5,000 unit 01/26/24 00:00 01/27/24 09:18 Heparin Sodium,Porcine 5,000 Unit/Ml 1 Ml Vial SQ 5,000 unit Q8HR ARIEL Administration Hydralazine HCl 10 mg 01/26/24 01:23 01/27/24 09:18 Hydralazine Hcl 20 Mg/Ml 1 Ml Vial IVP 10 mg Q6HR PRN Administration Blood Pressure - High Hydromorphone HCl 1 mg 01/25/24 13:35 01/27/24 05:26 Hydromorphone 1 Mg/Ml 1 Ml Syringe IVP 1 mg Q3HR PRN Administration Severe Pain (Scale 7 to 10) Hyoscyamine 0.125 mg 01/25/24 13:39 01/26/24 21:08 Hyoscyamine Sulfate 0.125 Mg Tab SL 0.125 mg QID PRN Administration GI Upset Sodium Chloride 1,000 mls @ 100 mls/hr 01/25/24 13:45 01/27/24 01:37 Saline 0.9% IV 100 mls/hr .Q10H ARIEL Administration Insulin Aspart 0 unit 01/26/24 07:30 01/27/24 08:09 Insulin Aspart (Novolog) 100 Unit/Ml Vial SQ Not Given ACHS [facility] Protocol Insulin Human Lispro 0.01 unit 01/25/24 13:45 01/26/24 14:26 Insulin Lispro (For Pump) 100 Unit/Ml Vial SQ-PUMP Not Given CONTINUOUS ARIEL Ketorolac Tromethamine 15 mg 01/25/24 13:35 01/26/24 23:08 Ketorolac 15 Mg/Ml 1 Ml Vial IVP 01/28/24 13:37 15 mg Q6HR PRN Administration Moderate Pain (Scale 4 to 6) Losartan Potassium 100 mg 01/26/24 09:00 01/27/24 09:06 Losartan 50 Mg Tab PO Not Given DAILY ARIEL Metoclopramide HCl 10 mg 01/25/24 13:37 01/27/24 05:26 Metoclopramide 5 Mg/Ml 2 Ml Vial IVP 10 mg Q6H PRN Administration Nausea And Vomiting Naloxone HCl 0.2 mg 01/25/24 13:35 Naloxone 0.4 Mg/Ml 1 Ml Vial IV Q2M PRN Opioid Reversal Ondansetron HCl 4 mg 01/25/24 13:35 01/26/24 23:08 Ondansetron 4 Mg/2 Ml Vial IVP 4 mg Q8HR PRN Administration Nausea And Vomiting Ondansetron HCl 4 mg 01/25/24 13:39 Ondansetron Odt 4 Mg Tab PO Q8HR PRN Nausea Pantoprazole Sodium 40 mg 01/26/24 21:00 01/27/24 09:17 Pantoprazole 40 Mg/10 Ml Vial IV 40 mg BID ARIEL Administration Promethazine HCl 12.5 mg 01/26/24 15:51 Promethazine Suppository 12.5 Mg Supp RECTAL TID PRN Nausea And Vomiting Scopolamine 1 patch 01/27/24 10:00 01/27/24 10:19 Scopolamine 1 Mg/72 Hr Patch TRANSDERM 1 patch Q72H ARIEL Administration Thiamine HCl 100 mg 01/26/24 09:00 01/27/24 09:06 Thiamine 100 Mg Tab PO Not Given DAILY ARIEL Trimethobenzamide HCl 200 mg 01/27/24 09:13 01/27/24 10:09 Trimethobenzamide 100 Mg/Ml 2 Ml Vial IM 200 mg Q6HR PRN Administration Nausea And Vomiting Objective - Vital Signs Vital signs: Vital Signs Temp 97.4 F L 01/27/24 07:00 Pulse 88 01/27/24 08:00 Resp 18 01/27/24 08:00 BP 172/101 01/27/24 07:00 Pulse Ox 99 01/27/24 07:00 FiO2 Intake & Output 01/26/24 01/27/24 01/27/24 18:59 06:59 18:59 Other: Voiding Method Toilet Toilet Toilet # Voids 2 3 - Exam GENERAL: The patient is alert and oriented x3, not in any acute distress. Well developed, well nourished. HEENT: Pupils are round and equally reacting to light. EOMI. No scleral icterus. No conjunctival pallor. Normocephalic, atraumatic. No pharyngeal erythema. No thyromegaly. CARDIOVASCULAR: S1 and S2 present. No murmurs, rubs, or gallops. PULMONARY: Chest is clear to auscultation, no wheezing , no crackles. -ABDOMEN: Soft, mild epigastric tenderness with no rebound tenderness, nondistended, normoactive bowel sounds. No palpable organomegaly. MUSCULOSKELETAL: No joint swelling or deformity. EXTREMITIES: No cyanosis, clubbing, or pedal edema. NEUROLOGICAL: Gross neurological examination did not reveal any focal deficits. SKIN: No rashes. no petechiae. - Labs CBC & Chem 7: 01/27/24 06:53 01/27/24 06:53 Labs: Abnormal Lab Results - Last 24 Hours (Table) 01/27/24 01/27/24 Range/Units 06:53 06:53 WBC 13.2 H (3.8-10.6) k/uL RBC 3.83 L (4.30-5.90) m/uL Hgb 11.4 L (13.0-17.5) gm/dL Hct 33.0 L (39.0-53.0) % Neutrophils # 10.9 H (1.3-7.7) k/uL Sodium 146 H (137-145) mmol/L Chloride 113 H (98-107) mmol/L BUN 23 H (9-20) mg/dL Glucose 113 H (74-99) mg/dL Assessment and Plan Assessment: Intractable nausea vomiting and abdominal pain. Could be secondary to marijuana, rule out other GI causes Lactic acidosis due to tissue hypoperfusion. Resolved Hypomagnesemia and hypophosphatemia. Improved Possible cyclic vomiting due to marijuana use. History of gastroparesis Marijuana use disorder Daily alcohol use Diabetes type 2 on insulin pump with hyperglycemia GERD Anxiety/depression History of nicotine dependence Plan: Continue with normal saline 100 mL/h Continue with Carafate, Pepcid which are home doses. Protonix added in emergency room Continue with Zofran as needed, we will add Phenergan as needed Possible EGD tomorrow Continue with liquid diet Continue with IV hydralazine for control of blood pressure. GI consult on the case GI prophylaxis: Protonix and Pepcid and Carafate DVT prophylaxis: Subcutaneous heparin Prognosis guarded
[2024-01-27] MEDS: PROMETHAZINE SUPPOSITORY 12.5 MG SUPP RECTAL PRN (13:32)
--- NOTE | 2024-01-27 15:30 | P.PN ---
Subjective Progress Note Date: 01/27/24 Principal diagnosis: Intractable nausea and vomiting This is a pleasant 53-year-old male who presented to the emergency department with intractable nausea and vomiting over the last 3 days. He has a past medical history of nausea and vomiting, diabetes mellitus, hypertension, GERD, alcohol abuse, and marijuana use. He states that he has upper abdominal pain as well. He has had previous hospitalizations for this in the past and has a history of alcohol abuse but states he quit 2 years ago. Admits to regular marijuana use. Last upper endoscopy was in [address] Moya that showed gastritis, biopsy showed mild chronic gastritis. CT abdomen pelvis without any acute findings. Mild leukocytosis, LFTs normal. 01/27/2024 Patient seen and examined today as a follow-up. Apparently through the night he did well where he had a few hours of sleep and no vomiting. He woke up this morning and he is had 3 episodes of emesis and another episode currently. St ates he has some epigastric discomfort associated with it. He remains afebrile. Objective - Vital Signs Vital signs: Vital Signs Temp 97.4 F L 01/27/24 07:00 Pulse 88 01/27/24 07:00 Resp 18 01/27/24 07:00 BP 172/101 01/27/24 07:00 Pulse Ox 99 01/27/24 07:00 FiO2 Intake & Output 01/26/24 01/27/24 01/27/24 18:59 06:59 18:59 Other: Voiding Method Toilet Toilet # Voids 2 3 - Exam General appearance: The patient is alert, oriented, appears in no acute distress. HET: Head is normocephalic and atraumatic. Conjunctiva pink. Sclera anicteric. Neck: Supple without lymphadenopathy. Abdomen: Soft, mild epigastric tenderness, nondistended. Extremities: Normal skin color and turgor. No pedal edema Skin: No rashes, no jaundice Neurological: No focal deficits. Alert and oriented. - Labs CBC & Chem 7: 01/27/24 06:53 01/27/24 06:53 Labs: Abnormal Lab Results - Last 24 Hours (Table) 01/26/24 01/27/24 01/27/24 Range/Units 07:46 06:53 06:53 WBC 13.2 H (3.8-10.6) k/uL RBC 3.83 L (4.30-5.90) m/uL Hgb 11.4 L (13.0-17.5) gm/dL Hct 33.0 L (39.0-53.0) % Neutrophils # 10.9 H (1.3-7.7) k/uL Sodium 146 H (137-145) mmol/L Chloride 113 H (98-107) mmol/L BUN 23 H (9-20) mg/dL Glucose 113 H (74-99) mg/dL Hemoglobin A1c 8.7 H (<=6.0) % Assessment and Plan (1) Intractable nausea and vomiting Narrative/Plan: 53-year-old male with previous history nausea and vomiting usually associated with alcoholic gastritis and has undergone previous scopes in the past. Last EGD being in 2019 with findings of antral gastritis. Patient reportedly has quit drinking so error in previous documentation and has not recently started. However does still use daily marijuana. He is diabetic there is possible component of gastroparesis and also need to consider cannabinoid hyperemesis. Continue to treat symptomatically. Will add scopolamine patch and Tigan as needed. Consider possible upper endoscopy tomorrow if vomiting does not improve. Current Visit: Yes Status: Acute Code(s): R11.2 - NAUSEA WITH VOMITING, UNSPECIFIED SNOMED Code(s): 995020407 (2) ETOH abuse Narrative/Plan: History of regular alcohol use, reports quitting drinking 2 years ago Current Visit: Yes Status: Acute Code(s): F10.10 - ALCOHOL ABUSE, UNCOMPLI CATED SNOMED Code(s): 13538808 (3) Marijuana use Narrative/Plan: Daily marijuana use Current Visit: Yes Status: Acute Code(s): F12.90 - CANNABIS USE, UNSPECIFIED, UNCOMPLICATED SNOMED Code(s): 656706146 (4) Diabetes mellitus Current Visit: Yes Status: Acute Code(s): E11.9 - TYPE 2 DIABETES MELLITUS WITHOUT COMPLICATIONS SNOMED Code(s): 58363821 Plan: 1. Continue symptomatic supportive care 2. Continue antiemetics. Add scopolamine patch and Tigan 200 mg IM 3. Increase Protonix to 40 mg twice daily and discontinue Pepcid 4. Continue with Reglan and Zofran 5. Recommend stopping marijuana use, discussed with patient possibility of cannabinoid hyperemesis 6. Continue clear liquid diet, n.p.o. after midnight 7. Consider possible upper endoscopy tomorrow if vomiting does not improve Thank you for this consultation, we will continue to follow. Dr. Diogenes Fink I agree with the dictator's note, documented as a scribe by Bea Mazariegos.
[2024-01-27] MEDS: INSPUCOR MISCELLANE PRN (20:00)
[2024-01-27] MEDS: PROMETHAZINE SUPPOSITORY 25 MG SUPP RECTAL PRN (20:18)
[2024-01-27] MEDS ORDERED: INSULIN ASPART (NovoLOG) 100 UNIT/ML VIAL SQ PRN (20:37)
--- NOTE | 2024-01-28 10:21 | P.PN ---
Progress Note - Text Progress Note Date: 01/28/24 Patient was seen this morning and reports continued episodes of nausea and vomiting especially once medications wear off. He is reporting some coffee- ground emesis. Has elevated BUN. Hemoglobin has been stable. Will proceed with upper endoscopy today. With further recommendations forthcoming following upper endoscopy. Dr. Diogenes Fink I agree with the dictator's note, documented as a scribe by Bea Mazariegos.
[2024-01-28 12:40] VITALS: BMI 22.5
--- NOTE | 2024-01-28 15:29 | P.PN ---
Subjective Progress Note Date: 01/28/24 53-year-old male with a past medical history of hypertension, diabetes type 2 on insulin pump, GERD, anxiety/depression and marijuana use and recently started drinking liquor again presents to ER with complaints of nausea and vomiting and abdominal pain. Patient has been having intractable nausea and vomiting started yesterday. Was also having epigastric pain. Otherwise denied any fever or chills. Did have diarrhea this morning. No recent travel or sick contacts 24 patient. Patient states that he was having gastroparesis and has seen gastroenterology previously. No recent follow-up. Patient states that he has similar admission with nausea and vomiting previously. CT of the abdomen pelvis showed no acute abdominal/pelvic process within limitations of a noncontrast exam. EKG showed sinus rhythm. Laboratory data showed WBC 12.4 hemoglobin 13.6 and platelets 317 Sodium 139 potassium 4.4 chloride 106 bicarb is 21 BUN 24 and creatinine 1.64 and blood sugar 243 and lactic acid 2.2 calcium 10.8 phosphorus 1.3 and magnesium 1.6 Liver enzymes are not elevated amylase lipase within normal limits urinalysis showed 4+ glucose 1+ ketones and serum acetone negative. Patient has prior history of EGD in 2019 with no active GI bleed. Objective - Vital Signs Vital signs: Vital Signs Temp 99.2 F 01/28/24 12:00 Pulse 83 01/28/24 12:00 Resp 18 01/28/24 12:00 BP 207/79 01/28/24 12:00 Pulse Ox 99 01/28/24 12:00 FiO2 Intake & Output 01/27/24 01/28/24 01/28/24 18:59 06:59 18:59 Output Total 400 Balance -400 Weight 86.183 kg Output: Emesis 400 Other: Voiding Method Toilet Toilet # Voids 1 2 - Exam GENERAL: The patient is alert and oriented x3, not in any acute distress. Well developed, well nourished. HEENT: Pupils are round and equally reacting to light. EOMI. No scleral icterus. No conjunctival pallor. Normocephalic, atraumatic. No pharyngeal erythema. No thyromegaly. CARDIOVASCULAR: S1 and S2 present. No murmurs, rubs, or gallops. PULMONARY: Chest is clear to auscultation, no wheezing , no crackles. -ABDOMEN: Soft, mild epigastric tenderness with no rebound tenderness, nondistended, normoactive bowel sounds. No palpable organomegaly. MUSCULOSKELETAL: No joint swelling or deformity. EXTREMITIES: No cyanosis, clubbing, or pedal edema. NEUROLOGICAL: Gross neurological examination did not reveal any focal deficits. SKIN: No rashes. no petechiae. - Labs CBC & Chem 7: 01/27/24 06:53 01/27/24 06:53 Assessment and Plan Assessment: Intractable nausea vomiting and abdominal pain. Could be secondary to marijuana, rule out other GI causes Lactic acidosis due to tissue hypoperfusion. Resolved Hypomagnesemia and hypophosphatemia. Improved Possible cyclic vomiting due to marijuana use. History of gastroparesis Marijuana use disorder Daily alcohol use Diabetes type 2 on insulin pump with hyperglycemia GERD Anxiety/depression History of nicotine dependence Plan: Continue with normal saline 100 mL/h Continue with Carafate, Pepcid which are home doses. Protonix added in emergency room Continue with Zofran as needed, we will add Phenergan as needed Possible EGD tomorrow Continue with liquid diet Continue with IV hydralazine for control of blood pressure. GI consult on the case GI prophylaxis: Protonix and Pepcid and Carafate DVT prophylaxis: Subcutaneous heparin
[2024-01-28] MEDS: SODIUM CHLORIDE 0.9% 1,000 ML IV ONE ×2 (15:37→15:59)
[2024-01-28] MEDS ORDERED: LIDOCAINE 1% INJ 10MG/ML (20 ML MDV) ONE (15:46)
[2024-01-28] MEDS ORDERED: PROPOFOL 10 MG/ML 20 ML VIAL IV ONE (15:46)
--- NOTE | 2024-01-28 15:59 | P.PCN ---
Date of Procedure: 01/28/24 Procedure(s) Performed: BRIEF HISTORY: Patient is a 53-year-old, pleasant, white male admitted to hospital with intractable nausea vomiting for the last few days. He has intermittent episodes but the last episode that lasted this long was about 2 years ago. on. He has been on Protonix, Zofran, Reglan and scopolamine insulin and symptomatic.. He is scheduled for an upper endoscopy to evaluate further PROCEDURE PERFORMED: Esophagogastroduodenoscopy with biopsy. PREOPERATIVE DIAGNOSIS: Intractable nausea vomiting for the last few days duration. IV sedation per anesthesia. PROCEDURE: After informed consent was obtained, the patient was brought into the endoscopy unit. IV sedation was administered by Anesthesia under continuous monitoring. Initially the Olympus GIF-140 video endoscope was inserted into the mouth. Esophagus intubated without any difficulty. It was gradually advanced into the stomach and duodenum and carefully examined. The bulb and the second part of the duodenum appeared normal. Biopsies were done from the duodenum to rule out celiac disease. The scope at this time was withdrawn to the stomach, adequately insufflated with air, and upon careful examination, mucosa of the antrum, body mild diffuse gastritis and biopsies were done from this area. Mucosa of the, cardia and the fundus appeared normal. The scope was then withdrawn into the esophagus. Small hiatal hernia noted. The GE junction was located at 44 cm from the incisors. There is superficial erosions in the distal esophagus consistent with LA grade B reflux esophagitis. Rest of the esophagus appeared normal and the patient tolerated the procedure well. IMPRESSION: 1. Mild diffuse gastritis. 2. Small hiatal hernia and LA grade B reflux esophagitis. RECOMMENDATIONS: The findings of this examination were discussed with the patient . He was advised to follow with the biopsy results. In the meantime continue with Protonix 40 mg twice daily as well as antiemetics. Start on clear liquids and advance as tolerated.
[2024-01-29] MEDS: HYDROcodone/APAP 5-325MG 1 EACH TAB PO PRN (00:25)
[2024-01-29] MEDS: hydrALAZINE HCL 50 MG TAB PO STA (09:54)
--- NOTE | 2024-01-29 14:50 | P.PN ---
Subjective Progress Note Date: 01/29/24 53-year-old male with a past medical history of hypertension, diabetes type 2 on insulin pump, GERD, anxiety/depression and marijuana use and recently started drinking liquor again presents to ER with complaints of nausea and vomiting and abdominal pain. Patient has been having intractable nausea and vomiting started yesterday. Was also having epigastric pain. Otherwise denied any fever or chills. Did have diarrhea this morning. No recent travel or sick contacts 24 patient. Patient states that he was having gastroparesis and has seen gastroenterology previously. No recent follow-up. Patient states that he has similar admission with nausea and vomiting previously. CT of the abdomen pelvis showed no acute abdominal/pelvic process within limitations of a noncontrast exam. EKG showed sinus rhythm. Laboratory data showed WBC 12.4 hemoglobin 13.6 and platelets 317 Sodium 139 potassium 4.4 chloride 106 bicarb is 21 BUN 24 and creatinine 1.64 and blood sugar 243 and lactic acid 2.2 calcium 10.8 phosphorus 1.3 and magnesium 1.6 Liver enzymes are not elevated amylase lipase within normal limits urinalysis showed 4+ glucose 1+ ketones and serum acetone negative. Patient has prior history of EGD in 2019 with no active GI bleed. 01/29/2024 Patient is seen and evaluated resting in bed; reports continued dry heaving; currently on clear liquid diet Patient is status post EGD which revealed mild diffuse gastritis, small hiatal hernia and grade B reflux esophagitis -Patient is recommended to continue with Protonix 40 mg twice daily along with antibiotic therapy; plan to continue with clear liquid diet and advance as tolerated Objective - Vital Signs Vital signs: Vital Signs Temp 99.0 F 01/29/24 07:40 Pulse 85 01/29/24 07:40 Resp 15 01/29/24 07:40 BP 182/87 01/29/24 07:40 Pulse Ox 98 01/29/24 07:40 FiO2 Intake & Output 01/28/24 01/29/24 01/29/24 18:59 06:59 18:59 Intake Total 200 236 Balance 200 236 Weight 86.183 kg Intake: IV 200 Oral 236 Other: Voiding Method Toilet # Voids 2 2 # Bowel Movements 0 - Exam GENERAL: The patient is alert and oriented x3, not in any acute distress. Well developed, well nourished. HEENT: Pupils are round and equally reacting to light. EOMI. No scleral icterus. No conjunctival pallor. Normocephalic, atraumatic. No pharyngeal erythema. No thyromegaly. CARDIOVASCULAR: S1 and S2 present. No murmurs, rubs, or gallops. PULMONARY: Chest is clear to auscultation, no wheezing , no crackles. -ABDOMEN: Soft, mild epigastric tenderness with no rebound tenderness, nondistended, normoactive bowel sounds. No palpable organomegaly. MUSCULOSKELETAL: No joint swelling or deformity. EXTREMITIES: No cyanosis, clubbing, or pedal edema. NEUROLOGICAL: Gross neurological examination did not reveal any focal deficits. SKIN: No rashes. no petechiae. - Labs CBC & Chem 7: 01/27/24 06:53 01/27/24 06:53 Assessment and Plan Assessment: Intractable nausea vomiting and abdominal pain. Could be secondary to marijuana, rule out other GI causes Lactic acidosis due to tissue hypoperfusion. Resolved Hypomagnesemia and hypophosphatemia. Improved Possible cyclic vomiting due to marijuana use. History of gastroparesis Marijuana use disorder Daily alcohol use Diabetes type 2 on insulin pump with hyperglycemia GERD Anxiety/depression History of nicotine dependence Plan: Continue with normal saline 100 mL/h Continue with Carafate, Pepcid which are home doses. Protonix added in emergency room Continue with Zofran as needed, we will add Phenergan as needed Possible EGD tomorrow Continue with liquid diet Continue with IV hydralazine for control of blood pressure. GI consult on the case GI prophylaxis: Protonix and Pepcid and Carafate DVT prophylaxis: Subcutaneous heparin
[2024-01-29] MEDS: hydrALAZINE HCL 25 MG TAB PO SCH (20:17)
[2024-01-29 22:29] LABS: Glucose,Whole Blood 291 mg/dL (70-110)
[2024-01-30 07:48] VITALS: BP 169/85; PULSE 67; RESP 16; TEMP 98.3
== END 2024-01-30 13:20 | disposition still patient (30) | DRG 775 ==
LOC: EC 10:29 → OBSVTOIN 13:30 → 1SOBS 13:30 → 6NMEDSUR 01-27 17:56
PROVIDERS: ADMIT Internal Medicine; ATTEND Internal Medicine
DX: F12.988 Cannabis use, unspecified with other cannabis-induced disorder (principal); E87.20 Acidosis, unspecified; E83.39 Other disorders of phosphorus metabolism; E11.43 Type 2 diabetes mellitus with diabetic autonomic (poly)neuropathy; F10.11 Alcohol abuse, in remission; E11.65 Type 2 diabetes mellitus with hyperglycemia; F32.A Depression, unspecified; I10 Essential (primary) hypertension; R11.15 Cyclical vomiting syndrome unrelated to migraine; E83.42 Hypomagnesemia; F41.9 Anxiety disorder, unspecified; K31.84 Gastroparesis; K21.00 Gastro-esophageal reflux disease with esophagitis, without bleeding; K44.9 Diaphragmatic hernia without obstruction or gangrene; Z96.41 Presence of insulin pump (external) (internal); Z79.4 Long term (current) use of insulin; Z79.899 Other long term (current) drug therapy; Z87.891 Personal history of nicotine dependence
CPT/HCPCS: 36415; 43239; 74176; 80048; 80053; 81001; 82009; 82150; 83036; 83605; 83690; 83735; 84100; 84145; 85025; 88305; 88312; 93005; 96361; 96374; 96375; 99285

== ENCOUNTER → 2024-02-18 | Outpatient (CLI) | payer OTHER | END | disposition home or self-care (01) | LOC: LABWHC1 08:42 | PROVIDERS: ATTEND Internal Medicine | DX: E10.65 Type 1 diabetes mellitus with hyperglycemia (principal); R11.2 Nausea with vomiting, unspecified | CPT/HCPCS: 36415; 82784; 83036; 83516 ==

== ENCOUNTER → 2024-03-15 | Outpatient (CLI) | payer OTHER ==
[2024-03-15 10:18] LABS: Appearance,Urine Clear (Clear); Bilirubin,Urine Negative (Negative); Blood,Urine Negative (Negative); Color,Urine Yellow (Yellow); Ketones,Urine Negative (Negative); Nitrite,Urine Negative (Negative); PH, Urine 5.5; Specific Gravity,Urine 1.013 (1.001-1.030); Urobilinogen,Urine 0.2 E.U./DL
[2024-03-15 10:33] LABS: HGB 11.9 g/dL (13.0-17.0); MCH 28.5 pg (27.0-32.0); MCHC 33.1 g/dL (32.0-37.0); MCV 86.3 FL (80.0-97.0); Mean Platelet Volume 9.7 FL (9.5-12.2); NRBC Per 100 WBC 0 X 10*3/uL (0.00-0.01); Platelet Count 290 X 10*3/uL (140-440); RBC 4.17 X 10*6/uL (4.40-5.60); RDW 12.6 % (11.5-14.5); WBC 8.32 X 10*3/uL (4.50-10.00)
[2024-03-15 16:44] LABS: % Iron Saturation 21.39 (15.00-50.00); ALT 18 U/L (10-49); AST 19 U/L (14-35); Albumin 4.4 g/dL (3.8-4.9); Alkaline Phosphatase 62 U/L (41-126); BUN/Creat Ratio 20.33 Ratio (12.00-20.00); Blood Urea Nitrogen 42.7 mg/dL (9.0-27.0); Calcium 9.6 mg/dL (8.7-10.3); Carbon Dioxide 23.8 mmol/L (21.6-31.8); Chloride 109 mmol/L (96-109); Globulin 2.2 g/dL (1.6-3.3); Glucose 131 mg/dL (70-110); Iron 74 UG/DL (65-175); Magnesium 2.3 mg/dL (1.5-2.4); Phosphorus 3.7 mg/dL (2.4-5.1); Potassium 4.9 mmol/L (3.5-5.5); Sodium 142 mmol/L (135-145); Total Bilirubin 0.3 mg/dL (0.3-1.2); Total Iron Binding Capacity 346 UG/DL (228-460); Total Protein 6.6 g/dL (6.2-8.2); Uric Acid 6.2 mg/dL (3.7-8.7)
== END | disposition home or self-care (01) ==
LOC: LABWHC1 08:15
PROVIDERS: ATTEND Internal Medicine
DX: N39.0 Urinary tract infection, site not specified (principal); N18.31 Chronic kidney disease, stage 3a; D64.9 Anemia, unspecified; E55.9 Vitamin D deficiency, unspecified; N25.81 Secondary hyperparathyroidism of renal origin; M10.9 Gout, unspecified
CPT/HCPCS: 36415; 80053; 81003; 82043; 82306; 82570; 82728; 83540; 83550; 83735; 83970; 84100; 84550; 85027

== ENCOUNTER → 2024-04-21 | Outpatient (CLI) | payer OTHER ==
--- NOTE | 2024-04-21 12:05 | NM ---
EXAMINATION TYPE: NM gastric emptying static DATE OF EXAM: 04/21/2024 COMPARISON: NONE CLINICAL INDICATION: Male, 53 years old with history of R11.2 Nausea with vomiting; Following administration of 1.96 mCi Tc 99m Sulfur Colloid with 4 OUNCES EGGS, 2 PIECES TOAST WITH BU TTER & JAM, 8 OUNCES WATER, projection images of the abdomen were obtained 10 minutes post ingestion. Patient Emptying Values 1 Hour 18 % 2 Hours 40 % 3 Hours 81 % 4 Hours 88 % Gastroesophagel reflux: None IMPRESSION: Gastric emptying: Normal gastric emptying exam Gastroesophageal reflux: None [facility], , 04/21/2024 12:03 PM
== END | disposition home or self-care (01) ==
LOC: RADNMMAIN 07:06
PROVIDERS: ATTEND Internal Medicine Gastroenterology
DX: R11.2 Nausea with vomiting, unspecified (principal)
CPT/HCPCS: 78264; A9541

== ENCOUNTER → 2024-04-26 | Outpatient (CLI) | payer OTHER ==
--- NOTE | 2024-04-27 16:11 | US ---
EXAMINATION TYPE: US kidneys/renal and bladder DATE OF EXAM: 04/26/2024 COMPARISON: 05/31/2023 CLINICAL INDICATION: Male, 53 years old with history of N18.31 CHRONIC KIDNEY DISEASE, STAGE 3A; Abno rmal labs TECHNIQUE: Grayscale imaging of the bilateral kidneys and urinary bladder: FINDINGS: EXAM MEASUREMENTS: Right Kidney: 11.2 x 5.4 x 5.8 cm Left Kidney: 11.9 x 5.2 x 5.3 cm Right Kidney: No hydronephrosis or masses seen Left Kidney: No hydronephrosis or masses seen Bladder: distended, anechoic Bilateral Jets not seen IMPRESSION: 1. Unremarkable renal ultrasound [facility], , 04/27/2024 4:09 PM
== END | disposition home or self-care (01) ==
LOC: RADUSWWP 06:49
PROVIDERS: ATTEND Internal Medicine
DX: N18.31 Chronic kidney disease, stage 3a (principal)
CPT/HCPCS: 76770

== ENCOUNTER → 2024-06-05 | Outpatient (CLI) | payer OTHER ==
[2024-06-05 10:25] LABS: Appearance,Urine Clear (Clear); Bilirubin,Urine Negative (Negative); Blood,Urine Negative (Negative); Color,Urine Colorless; Glucose,Urine (UA) 2+ (Negative); Hyaline Casts,Urine 6 /lpf (0-2); Ketones,Urine Negative (Negative); Leukocyte Esterase,Urine Negative (Negative); Mucus,Urine Rare /hpf; Nitrite,Urine Negative (Negative); PH, Urine 5.5 (5.0-8.0); Protein,Urine 1+ (Negative); RBC,Urine <1 /hpf (0-5); Specific Gravity,Urine 1.014 (1.001-1.035); Squamous Epithelial Cell,Urine <1 /hpf (0-4); Urobilinogen,Urine <2.0 mg/dL (<2.0); WBC,Urine <1 /hpf (0-5)
[2024-06-05 14:59] LABS: HCT 37.9 % (39.6-50.0); HGB 12.4 g/dL (13.0-17.0); MCH 28.7 pg (27.0-32.0); MCHC 32.7 g/dL (32.0-37.0); MCV 87.7 FL (80.0-97.0); Mean Platelet Volume 10.1 FL (9.5-12.2); NRBC Per 100 WBC 0 X 10*3/uL (0.00-0.01); Platelet Count 288 X 10*3/uL (140-440); RBC 4.32 X 10*6/uL (4.40-5.60); RDW 12.5 % (11.5-14.5); WBC 7.74 X 10*3/uL (4.50-10.00)
[2024-06-05 15:26] LABS: Hepatitis A Antibody IgM Nonreactive (Nonreactive); Hepatitis B Core IgM Nonreactive (Nonreactive); Hepatitis B Surface Antigen Nonreactive (Nonreactive); Hepatitis C IgG Antibody Nonreactive (Nonreactive)
[2024-06-05 15:30] LABS: ALT 22 U/L (10-49); AST 17 U/L (14-35); Albumin 4.4 g/dL (3.8-4.9); Alkaline Phosphatase 64 U/L (41-126); BUN/Creat Ratio 20.38 Ratio (12.00-20.00); Blood Urea Nitrogen 26.5 mg/dL (9.0-27.0); Calcium 9.6 mg/dL (8.7-10.3); Carbon Dioxide 22.8 mmol/L (21.6-31.8); Chloride 109 mmol/L (96-109); Globulin 2.2 g/dL (1.6-3.3); Glucose 154 mg/dL (70-110); Iron 59 UG/DL (65-175); Magnesium 2.4 mg/dL (1.5-2.4); Phosphorus 2.4 mg/dL (2.4-5.1); Potassium 4.8 mmol/L (3.5-5.5); Sodium 141 mmol/L (135-145); Total Bilirubin <0.2 mg/dL (0.3-1.2); Total Iron Binding Capacity 347 UG/DL (228-460); Total Protein 6.6 g/dL (6.2-8.2); Uric Acid 5.2 mg/dL (3.7-8.7)
[2024-06-05 19:15] LABS: Anti-DNA, DS unit <1.0 IU/mL; DNA Double-Stranded Negative (Negative)
[2024-06-06 12:46] LABS: Free Kappa Lt Chain Qnt, Serum 2.95 mg/dL (0.33-1.94); Free Lambda Lt Chain Qnt, Seru 1.79 mg/dL (0.57-2.63)
[2024-06-06 14:26] LABS: C-ANCA <1:20 Titer (<1:20)
== END | disposition home or self-care (01) ==
LOC: LABWHC1 08:42
PROVIDERS: ATTEND Internal Medicine
DX: N18.31 Chronic kidney disease, stage 3a (principal)
CPT/HCPCS: 36415; 80053; 80074; 81001; 82043; 82306; 82570; 82728; 83516; 83540; 83550; 83735; 83883; 83970; 84100; 84166; 84550; 85027; 86038; 86160; 86162; 86225; 86255; 86334

== ENCOUNTER → 2024-06-16 | Outpatient (CLI) | payer OTHER ==
[2024-06-16 15:04] LABS: ALT 30 U/L (10-49); AST 21 U/L (14-35); Albumin 4.6 g/dL (3.8-4.9); Alkaline Phosphatase 73 U/L (41-126); BUN/Creat Ratio 27.12 Ratio (12.00-20.00); Blood Urea Nitrogen 46.1 mg/dL (9.0-27.0); Carbon Dioxide 23.3 mmol/L (21.6-31.8); Chloride 106 mmol/L (96-109); Globulin 2.3 g/dL (1.6-3.3); Glucose 208 mg/dL (70-110); Potassium 5.2 mmol/L (3.5-5.5); Sodium 139 mmol/L (135-145); Total Bilirubin 0.2 mg/dL (0.3-1.2); Total Protein 6.9 g/dL (6.2-8.2)
== END | disposition home or self-care (01) ==
LOC: LABWHC1 08:36
PROVIDERS: ATTEND Nurse Practitioner Family
DX: N18.31 Chronic kidney disease, stage 3a (principal)
CPT/HCPCS: 36415; 80053

== ENCOUNTER → 2024-11-22 | Outpatient (CLI) | payer OTHER ==
[2024-11-22 15:19] LABS: Basophils # (A) 0.03 X 10*3/uL (0.00-0.10); Basophils % (A) 0.3 %; Eosinophils # (A) 0.26 X 10*3/uL (0.04-0.35); Eosinophils % (A) 2.7 %; HCT 41.5 % (39.6-50.0); HGB 13.6 g/dL (13.0-17.0); Immature Grans, Automated 0.30 %; Lymphocytes # (A) 2.92 X 10*3/uL (0.90-5.00); Lymphocytes % (A) 29.9 %; MCH 29.1 pg (27.0-32.0); MCHC 32.8 g/dL (32.0-37.0); MCV 88.7 FL (80.0-97.0); Monocytes # (A) 0.84 X 10*3/uL (0.20-1.00); Monocytes % (A) 8.6 %; NRBC Per 100 WBC 0 X 10*3/uL (0.00-0.01); Neutrophils # (A) 5.67 X 10*3/uL (1.80-7.70); Neutrophils % (A) 58.2 %; Platelet Count 288 X 10*3/uL (140-440); RBC 4.68 X 10*6/uL (4.40-5.60); RDW 12.7 % (11.5-14.5); WBC 9.75 X 10*3/uL (4.50-10.00)
[2024-11-22 15:46] LABS: Cholesterol 150.00 mg/dL (0.00-200.00); HDL Cholesterol 39.50 mg/dL (40.00-60.00); Iron 65 UG/DL (65-175); LDL Cholesterol,Calculated 80.5 mg/dL (0.0-131.0); Magnesium 2.4 mg/dL (1.5-2.4); Total Iron Binding Capacity 332 UG/DL (228-460); Triglycerides 150.00 mg/dL (0.00-149.00); Uric Acid 6.6 mg/dL (3.7-8.7); VLDL Calculation 30.00 mg/dL (5.00-40.00)
[2024-11-22 15:47] LABS: ALT 24 U/L (10-49); AST 19 U/L (14-35); Albumin 4.7 g/dL (3.8-4.9); Albumin/Globulin Ratio 2.24 Ratio (1.60-3.17); Alkaline Phosphatase 55 U/L (41-126); Anion Gap 11.90 mmol/L (4.00-12.00); BUN/Creat Ratio 21.14 Ratio (12.00-20.00); Blood Urea Nitrogen 44.4 mg/dL (9.0-27.0); Calcium 9.8 mg/dL (8.7-10.3); Carbon Dioxide 24.1 mmol/L (21.6-31.8); Chloride 102 mmol/L (96-109); Ferritin 138.0 ng/mL (22.0-322.0); Globulin 2.1 g/dL (1.6-3.3); Glucose 209 mg/dL (70-110); Potassium 4.9 mmol/L (3.5-5.5); Sodium 138 mmol/L (135-145); Total Protein 6.8 g/dL (6.2-8.2)
[2024-11-23 01:24] LABS: Bilirubin,Urine Negative (Negative); Blood,Urine Negative (Negative); Color,Urine Yellow (Yellow); Ketones,Urine Negative (Negative); Nitrite,Urine Negative (Negative); PH, Urine 5.5; Specific Gravity,Urine 1.026 (1.001-1.030); Urobilinogen,Urine 0.2 E.U./DL
== END | disposition home or self-care (01) ==
LOC: LABWHC1 08:22
PROVIDERS: ATTEND Internal Medicine
DX: I12.9 Hypertensive chronic kidney disease with stage 1 through stage 4 chronic kidney disease, or unspecified chronic kidney disease (principal); E10.22 Type 1 diabetes mellitus with diabetic chronic kidney disease; N18.31 Chronic kidney disease, stage 3a; D63.1 Anemia in chronic kidney disease; E10.69 Type 1 diabetes mellitus with other specified complication; N39.0 Urinary tract infection, site not specified; E55.9 Vitamin D deficiency, unspecified; N25.81 Secondary hyperparathyroidism of renal origin; M10.9 Gout, unspecified; R80.9 Proteinuria, unspecified
CPT/HCPCS: 36415; 80053; 80061; 81003; 82043; 82306; 82570; 82728; 83036; 83540; 83550; 83735; 83970; 84100; 84443; 84550; 85025